=== PATIENT | male | born 1970 | race Caucasian/White ===

== ENCOUNTER 2018-04-15 20:12 | Inpatient (IN) ==
[2018-04-15] MEDS ORDERED: Isovue-370 500 ML INFUS..BTL IV ONE (20:20)
[2018-04-15] MEDS ORDERED: *HR* FentaNYL (PF) 100 MCG/2 ML VIAL IVP ONE (20:20)
[2018-04-15] MEDS ORDERED: Ondansetron 4 MG/2 ML VIAL IVP ONE (20:21)
--- NOTE | 2018-04-15 20:23 | Emergency Department Note ---
Disposition Clinical Impression: Acute appendicitis Qualifiers: Acute appendicitis type: with localized peritonitis Qualified Code(s): K35.3 - Acute appendicitis with localized peritonitis Disposition: Admitted As Inpatient Condition: Good Referrals: Julio César Mccarty MD [Primary Care Provider] - Forms: ED Satisfaction Letter, Work/School Release Time of Disposition: 22:36 Abdominal Pain HPI - General Chief Complaint: ED Abdominal Pain Stated Complaint: Abdominal Pain Time Seen by Provider: 04/15/18 20:19 Source: patient, EMS Mode of arrival: EMS - History of Present Illness HPI Narrative: This is a 47-year-old male who reports bilateral lower quadrant abdominal pain that began several hours prior to arrival. He also had a syncopal episode an unknown amount of time prior to arrival. He reports never having had similar abdominal pain before. He denies chest pain or shortness of breath. Pain Scale: 5 - Related Data Allergies Allergy/AdvReac Type Severity Reaction Status Date / Time No Known Allergies Allergy Verified 04/15/18 20:23 All systems ED: reviewed and negative except as stated. Cardiovascular: Reports: syncope Gastrointestinal: Reports: abdominal pain Abdominal Pain PMH - Past Medical History Medical history: Reports: diabetes, GERD, hypertension Male Surgical History: Reports: no surgical history Psychiatric history: Reports: no psych history - Social History Smoking status: Current every day smoker Alcohol use: Reports: none Drug use: Reports: none Physical Exam - General Limitations: no limitations General appearance: alert - Head Head exam: atraumatic, normocephalic, normal inspection - Eye Eye exam: Present: normal appearance, PERRL, EOMI - Chest Chest inspection: Present: normal inspection, symmetric chest wall rise - Respiratory Respiratory exam: Present: normal lung sounds bilaterally - Cardiovascular Cardiovascular exam: Present: regular rate, normal rhythm, normal heart sounds - Abdominal Exam Abdominal exam: Present: soft, tenderness. Absent: distention, guarding, rebound, rigidity Abdominal tenderness: Present: RLQ, LLQ - Extremities Exam Extremities exam: Present: normal inspection, full ROM. Absent: tenderness, pedal edema - Neurological Exam Neurological exam: Present: alert, oriented X3 - Psychiatric Psychiatric exam: Present: normal affect, normal mood - Skin Skin exam: Present: warm, dry, intact, normal color Course Vital Signs Temperature 98.3 F 04/15/18 20:17 Pulse Rate 87 04/15/18 20:17 Respiratory Rate 14 04/15/18 20:17 Blood Pressure 116/82 04/15/18 20:17 O2 Sat by Pulse Oximetry 99 04/15/18 20:17 Temperature 98.3 F 04/15/18 20:17 Pulse Rate 105 04/15/18 22:21 Respiratory Rate 20 04/15/18 22:21 Blood Pressure 128/85 04/15/18 22:21 O2 Sat by Pulse Oximetry 94 04/15/18 22:21 Oxygen Delivery Oxygen Delivery Room Air Abdominal Pain - MDM Narrative Medical decision making narrative: This is a 47-year-old male with acute appendicitis. I discussed this case with Dr. Sung, who accepted him for admission - Lab Data Lab results narrative: CBC shows leukocytosis of 14.2 BMP was unremarkable LFT was unremarkable Lactic acid was normal at 1.5 Troponin was low Result diagrams: 04/15/18 20:26 04/15/18 20:26 Lab Results 04/15/18 04/15/18 04/15/18 Range/Units 20:26 20:26 20:26 WBC 14.2 H (4.3-11.1) K/mcL RBC 5.61 H (4.19-5.50) M/mcL Hgb 16.8 (12.9-16.9) g/dL Hct 49.7 (37.5-50.1) % MCV 88.6 (83.0-100.0) fL MCH 29.9 (28.0-33.3) pg MCHC 33.8 (31.6-35.5) g/dL RDW 13.6 (11.5-14.5) % Plt Count 189 (140-400) K/mcL MPV 10.5 (9.4-12.4) fL Immature Gran % 0.8 (0-4) % Seg Neutrophils % 84.8 % Lymphocytes % 4.4 % Monocytes % 9.6 % Eosinophils % 0.1 % Basophils % 0.3 % Neutrophils # 12.1 H (1.6-8.9) K/mcL Lymphocytes # 0.6 (0.6-4.6) K/mcL Monocytes # 1.4 H (0.0-1.3) K/mcL Eosinophils # 0.0 (0.0-0.6) K/mcL Basophils # 0.0 (0.0-0.2) K/mcL Sodium 137 (136-145) mEq/L Potassium 4.6 (3.5-5.1) mEq/L Chloride 102 (98-107) mEq/L Carbon Dioxide 24 (23-29) mEq/L BUN 11 (6-20) mg/dL Creatinine 1.04 (0.70-1.30) mg/dL Est GFR ( Amer) > 60 (> 60) Est GFR (Non-Af Amer) > 60 (> 60) BUN/Creatinine Ratio 11 (6-26) Glucose 289 H (70-105) mg/dL Calculated Osmolality 294 (280-300) Lactic Acid 1.5 (0.5-2.2) mmol/L Calcium 9.3 (8.6-10.3) mg/dL Total Bilirubin 0.9 (0.3-1.0) mg/dL Direct Bilirubin 0.3 H (0.0-0.2) mg/dL Indirect Bilirubin 0.6 (0.0-1.2) mg/dL AST 12 L (13-39) Units/L ALT 23 (7-52) Units/L Alkaline Phosphatase 59 (34-104) Units/L Troponin I < 0.03 (< 0.04) ng/mL Serum Total Protein 7.2 (6.4-8.9) g/dL Albumin 4.2 (3.5-5.7) g/dL Globulin 3.0 (2.4-3.5) g/dL Albumin/Globulin Ratio 1.4 (1.1-2.2) Urine Color (Yellow) Urine Clarity (Clear) Urine pH (5.0-8.0) pH Units Ur Specific [place] (1.010-1.025) Urine Protein (Neg-Trace) mg/dL Urine Glucose (UA) (Normal) mg/dL Urine Ketones (Negative) mg/dL Urine Blood (Negative) Urine Nitrite (Negative) Urine Bilirubin (Negative) Urine Urobilinogen (Normal) mg/dL Ur Leukocyte Esterase (Negative) Urine Microscopic RBC (0-3) per hpf Urine Microscopic WBC (0-3) per hpf Ur Squamous Epith Cells (None-Few) per lpf Urine Bacteria (None-Few) per hpf Hyaline Casts (None-Few) per lpf Ur Culture Indicated? (NO) 04/15/18 Range/Units 21:38 WBC (4.3-11.1) K/mcL RBC (4.19-5.50) M/mcL Hgb (12.9-16.9) g/dL Hct (37.5-50.1) % MCV (83.0-100.0) fL MCH (28.0-33.3) pg MCHC (31.6-35.5) g/dL RDW (11.5-14.5) % Plt Count (140-400) K/mcL MPV (9.4-12.4) fL Immature Gran % (0-4) % Seg Neutrophils % % Lymphocytes % % Monocytes % % Eosinophils % % Basophils % % Neutrophils # (1.6-8.9) K/mcL Lymphocytes # (0.6-4.6) K/mcL Monocytes # (0.0-1.3) K/mcL Eosinophils # (0.0-0.6) K/mcL Basophils # (0.0-0.2) K/mcL Sodium (136-145) mEq/L Potassium (3.5-5.1) mEq/L Chloride (98-107) mEq/L Carbon Dioxide (23-29) mEq/L BUN (6-20) mg/dL Creatinine (0.70-1.30) mg/dL Est GFR ( Amer) (> 60) Est GFR (Non-Af Amer) (> 60) BUN/Creatinine Ratio (6-26) Glucose (70-105) mg/dL Calculated Osmolality (280-300) Lactic Acid (0.5-2.2) mmol/L Calcium (8.6-10.3) mg/dL Total Bilirubin (0.3-1.0) mg/dL Direct Bilirubin (0.0-0.2) mg/dL Indirect Bilirubin (0.0-1.2) mg/dL AST (13-39) Units/L ALT (7-52) Units/L Alkaline Phosphatase (34-104) Units/L Troponin I (< 0.04) ng/mL Serum Total Protein (6.4-8.9) g/dL Albumin (3.5-5.7) g/dL Globulin (2.4-3.5) g/dL Albumin/Globulin Ratio (1.1-2.2) Urine Color Yellow (Yellow) Urine Clarity Clear (Clear) Urine pH 5.5 (5.0-8.0) pH Units Ur Specific [place] > 1.030 H (1.010-1.025) Urine Protein 30 H (Neg-Trace) mg/dL Urine Glucose (UA) >=1000 H (Normal) mg/dL Urine Ketones 40 H (Negative) mg/dL Urine Blood Negative (Negative) Urine Nitrite Negative (Negative) Urine Bilirubin Negative (Negative) Urine Urobilinogen Normal (Normal) mg/dL Ur Leukocyte Esterase Negative (Negative) Urine Microscopic RBC 3-5 H (0-3) per hpf Urine Microscopic WBC 0-3 (0-3) per hpf Ur Squamous Epith Cells Moderate H (None-Few) per lpf Urine Bacteria None Seen (None-Few) per hpf Hyaline Casts Few (None-Few) per lpf Ur Culture Indicated? NO (NO) - Radiology Data Radiology results reviewed: Yes I reviewed the patient's radiology results. CT evidence/pelvis showed acute appendicitis - EKG Data EKG attestation: Yes I reviewed and interpreted this EKG. EKG results narrative: ECG showed a sinus rhythm at 89 bpm, normal intervals, normal axis, there is T- wave inversion in lead 3, and S wave in lead 1, and a Q-wave in lead 3, and T waves in V2 and V3 are slightly peaked, no other ST or T-wave abnormality
[2018-04-15 20:45] LABS: Basophils % 0.3 %; Eosinophils % 0.1 %; Hematocrit 49.7 % (37.5-50.1); Hemoglobin 16.8 g/dL (12.9-16.9); Immature Granulocytes % 0.8 % (0-4); Lymphocytes # 0.6 K/mcL (0.6-4.6); Lymphocytes % 4.4 %; Mean Corpuscular HGB Conc 33.8 g/dL (31.6-35.5); Mean Corpuscular Hemoglobin 29.9 pg (28.0-33.3); Mean Corpuscular Volume 88.6 fL (83.0-100.0); Mean Platelet Volume 10.5 fL (9.4-12.4); Monocytes # 1.4 K/mcL (0.0-1.3); Monocytes % 9.6 %; Neutrophils # 12.1 K/mcL (1.6-8.9); Platelet Count 189 K/mcL (140-400); Red Blood Count 5.61 M/mcL (4.19-5.50); Red Cell Distribution Width 13.6 % (11.5-14.5); Segmented Neutrophils % 84.8 %
[2018-04-15 21:00] LABS: Alanine Aminotransferase 23 Units/L (7-52); Albumin 4.2 g/dL (3.5-5.7); Albumin/Globulin Ratio 1.4 (1.1-2.2); Alkaline Phosphatase 59 Units/L (34-104); Aspartate Amino Transferase 12 Units/L (13-39); BUN/Creatinine Ratio 11 (6-26); Bilirubin,Direct 0.3 mg/dL (0.0-0.2); Bilirubin,Indirect 0.6 mg/dL (0.0-1.2); Bilirubin,Total 0.9 mg/dL (0.3-1.0); Blood Urea Nitrogen 11 mg/dL (6-20); Calcium 9.3 mg/dL (8.6-10.3); Carbon Dioxide 24 mEq/L (23-29); Chloride 102 mEq/L (98-107); Glucose 289 mg/dL (70-105); Osmolality,Calculated 294 (280-300); Potassium 4.6 mEq/L (3.5-5.1); Sodium 137 mEq/L (136-145); Total Protein 7.2 g/dL (6.4-8.9); Troponin I < 0.03 ng/mL (< 0.04); eGFR For Non-African Americans > 60 (> 60)
[2018-04-15 21:57] LABS: Bilirubin,Urine Negative (Negative); Blood,Urine Negative (Negative); Clarity,Urine Clear (Clear); Color,Urine Yellow (Yellow); Glucose,Urine (UA) >=1000 mg/dL (Normal); Ketones,Urine 40 mg/dL (Negative); Leukocyte Esterase,Urine Negative (Negative); Nitrite,Urine Negative (Negative); PH,Urine 5.5 pH Units (5.0-8.0); Protein,Urine 30 mg/dL (Neg-Trace); Specific Gravity,Urine > 1.030 (1.010-1.025); Urobilinogen,Urine Normal (Normal)
[2018-04-15 22:00] LABS: Bacteria,Urine None Seen per hpf (None-Few); Hyaline Casts,Urine Few per lpf (None-Few); Squamous Epithelial Cell,Urine Moderate per lpf (None-Few); WBC,Urine 0-3 per hpf (0-3)
[2018-04-15] MEDS ORDERED: Piperacillin/Tazobactam 3.375 GM in 0.9 % Sodium Chloride Mini Bag 100 ML IVPB ONE (22:05)
[2018-04-15] MEDS ORDERED: *HR* Morphine 2 MG/ML SYRINGE IVP PRN (22:44)
[2018-04-15] MEDS ORDERED: Mag Hydrox/Al Hydrox/Simeth 30 ML UDC PO ONE (23:40)
[2018-04-16] MEDS: cefOXitin 2,000 MG in Water for inj. (sterile) 20 ML 20 ML IVP SCH ×3 (01:21→17:55)
[2018-04-16] MEDS: 0.9 % Sodium Chloride 1,000 ML IVC SCH ×3 (01:22→19:35)
--- NOTE | 2018-04-16 08:45 | General Surg History&Physical ---
Date of Encounter: 04/16/18 Time of Encounter: 08:38 Assessment and Plan (1) Acute appendicitis Current Visit: Yes Status: Acute The assessment and plan as outlined above was discussed with the patient and/or family members who expressed understanding and agreement. All questions were answered. Imaging and assessment are consistent with acute appendicitis his CT notes dilated appendix at 18 mm, appendicolith is present, surrounding inflammatory changes noted, small amount of free fluid, and tiny focus of extra-luminal gas possibly representing perforation however noted CT is completed with IV only contrast (SEE REPORT BELOW). He is noted to have positive McBurney point, psoas , and Rovsing sign He is recommended to undergo a laparoscopic appendectomy vs interval appendectomy, (if perforation is likely-will review further with Dr. Sung). Recommendations, risks, and benefits, were reviewed with the patient and his mother who is his cardigan. They are all agreeable to proceed. We will plan for surgical intervention in the next 24 to 48 hours. A signed consent is placed on the hard chart. Plan: IVF, ATBX NPO CBC now and repeat in the am supportive care and discomfort management G.I. and DVT prophylaxis Further reviewed findings with Dr. Don (we appreciate your input and time) who notes microperfoation. Further recommendations per attending attestation CT/CT abd pelvis w iv no oral IMPRESSION: Acute appendicitis with tiny focus of adjacent extraluminal gas consistent with perforation. Surrounding inflammatory change and fluid is noted without a definable abscess. Qualifiers: Acute appendicitis type: with localized peritonitis Qualified Code(s): K35.3 - Acute appendicitis with localized peritonitis History of Present Illness Chief complaint: RLQ pain HPI: Mr. Marsh is a 47 year old male who presented on 04/15/2018 for a 24-hour history of right lower quadrant pain. Patient is somewhat of a poor historian given his history of developmental delay he is able to relate his PMH, but he is able to tell me that his abdominal pain started diffusely in the low abdomen and then localized to the right lower quadrant. He denies fevers. He does endorse a feeling of "blacking out," yesterday which she is not able to elaborate on. He reports the car ride and movement makes his pain worse. He is not able to lay on his back because of pain. He denies chest pain, shortness of breath, urinary signs or symptoms, constipation, diarrhea, or symptoms of a G.I. bleed. Past Med Surg Social Fam HX - Past Medical History Source: obtained from family Medical history: diabetes, GERD, hypertension, other (Developmental delay) Psychiatric history: no psych history - Past Surgical History Surgical History: no surgical history - Social History Smoking Status: Current every day smoker Smokeless Tobacco Status: No Alcohol use: none Drug use: none Occupational status: unemployed Current living situation: Home - Independent Activity Level: Independent ambulation Recent Out of Country Travel Within the Last 8 Weeks: No Exposure or Possible Exposure to Illness During Travel: No Medications and Allergies 3 Allergy/AdvReac Type Severity Reaction Status Date / Time No Known Allergies Allergy Verified 04/15/18 20:23 Review of Systems All systems PM: reviewed and no additional remarkable complaints except as stated All systems PM: The remainder of the systems were reviewed and are negative General Surgery Exam Initial Vital Signs Temp Pulse Resp BP Pulse Ox 98.3 F 87 14 116/82 99 04/15/18 20:17 04/15/18 20:17 04/15/18 20:17 04/15/18 20:17 04/15/18 20:17 Vital Signs Temp Pulse Resp BP Pulse Ox 04/16/18 05:53 98.2 F 104 16 123/84 91 04/16/18 01:53 90 04/16/18 01:05 99.2 F 101 17 130/81 90 04/15/18 23:36 16 118/86 04/15/18 22:21 105 20 128/85 94 04/15/18 20:17 98.3 F 87 14 116/82 99 Intake and Output 04/15/18 04/16/18 04/16/18 23:59 07:59 15:59 Intake Total 100 / 100 20 / 20 Output Total 525 / 525 Balance 100 / 100 -505 / -505 Intake: IV Fluids 100 / 100 20 / 20 Mefoxin 2,000 MG In Water for 20 20 inj. (sterile) 20 ML @ 600 mls/ hr IVP Q8HR [facility] Rx#:[id number] Zosyn 3.375 GM In 0.9 % Sodium 100 / 100 Chloride (Mini-Bag +) 100 ML @ 25 mls/hr IVPB ONCE ONE Rx#: [id number] Oral 0 / 0 Output: Urine 525 / 525 Other: Weight 99.79 kg 94.2 kg Blood Glucose* 256 Patient Weight 04/16/18 23:59 Weight 94.2 kg VITAL SIGNS: Reviewed. See [facility] GENERAL: In no apparent distress. HEENT: Normocephalic, atraumatic, pupils are equal and reactive, extraocular motions intact, oropharynx is pink and moist, edentulous, no JVD noted. CHEST/RESPIRATORY: The thorax is free from signs of trauma. Lung sounds: clear to auscultation, normal respiratory effort CARDIAC: Regular rate and rhythm. Normal S1 and S2, without murmurs, gallops, or rubs. VASCULAR: No Edema. 2+ peripheral pulses. ABDOMEN: protuberant, soft, hypoactive bowel sounds, positive McBurney point, positive psoas, positive Rovsing sign MUSCULOSKELETAL: Good range of motion of all major joints. Extremities without clubbing, cyanosis or edema. NEUROLOGIC EXAM: A7O x3, Speech normal. Follows commands. PSYCHIATRIC: Mood normal. Developmental delay noted SKIN: No rash or lesions. Results - Labs 04/16/18 08:58 04/16/18 08:58 Abnormal lab results WBC 14.2 K/mcL (4.3-11.1) H 04/15/18 20:26 RBC 5.61 M/mcL (4.19-5.50) H 04/15/18 20:26 Neutrophils # 12.1 K/mcL (1.6-8.9) H 04/15/18 20:26 Monocytes # 1.4 K/mcL (0.0-1.3) H 04/15/18 20:26 Glucose 289 mg/dL (70-105) H 04/15/18 20:26 Direct Bilirubin 0.3 mg/dL (0.0-0.2) H 04/15/18 20:26 AST 12 Units/L (13-39) L 04/15/18 20:26 Ur Specific [place] > 1.030 (1.010-1.025) H 04/15/18 21:38 Urine Protein 30 mg/dL (Neg-Trace) H 04/15/18 21:38 Urine Glucose (UA) >=1000 mg/dL (Normal) H 04/15/18 21:38 Urine Ketones 40 mg/dL (Negative) H 04/15/18 21:38 Urine Microscopic RBC 3-5 per hpf (0-3) H 04/15/18 21:38 Ur Squamous Epith Cells Moderate per lpf (None-Few) H 04/15/18 21:38 All other labs normal.
[2018-04-16] MEDS ORDERED: *HR* Metoprolol 5 MG/5 ML VIAL IVP SCH (08:47)
[2018-04-16 09:09] LABS: Basophils % 0.2 %; Hematocrit 48.1 % (37.5-50.1); Hemoglobin 16.5 g/dL (12.9-16.9); Immature Granulocytes % 0.3 % (0-4); Lymphocytes # 0.4 K/mcL (0.6-4.6); Lymphocytes % 2.8 %; Mean Corpuscular HGB Conc 34.3 g/dL (31.6-35.5); Mean Corpuscular Hemoglobin 30.6 pg (28.0-33.3); Mean Corpuscular Volume 89.1 fL (83.0-100.0); Mean Platelet Volume 10.4 fL (9.4-12.4); Monocytes # 1.1 K/mcL (0.0-1.3); Monocytes % 7.5 %; Neutrophils # 12.6 K/mcL (1.6-8.9); Platelet Count 177 K/mcL (140-400); Red Cell Distribution Width 13.8 % (11.5-14.5); Segmented Neutrophils % 89.2 %
[2018-04-16 09:35] LABS: BUN/Creatinine Ratio 13 (6-26); Blood Urea Nitrogen 15 mg/dL (6-20); Calcium 8.8 mg/dL (8.6-10.3); Carbon Dioxide 24 mEq/L (23-29); Chloride 100 mEq/L (98-107); Glucose 285 mg/dL (70-105); Osmolality,Calculated 289 (280-300); Potassium 4.2 mEq/L (3.5-5.1); Sodium 134 mEq/L (136-145); eGFR For Non-African Americans > 60 (> 60)
[2018-04-16 09:42] LABS: Platelet Estimate Normal (Normal)
[2018-04-16] MEDS: Pantoprazole 40 MG VIAL IVP SCH (10:15)
[2018-04-16] MEDS: Ipratropium/Albuterol Neb 3 ML IH SCH ×4 (11:29→23:16)
[2018-04-16] MEDS: *HR* Metoprolol 5 MG/5 ML VIAL IVP SCH ×2 (12:15→17:57)
[2018-04-16] MEDS ORDERED: D5% in Water 1,000 ML IVC PRN (14:47)
[2018-04-16] MEDS ORDERED: *HR* Dextrose 50 % in Water (Syg) 50 ML SYRINGE IVP PRN (14:47)
[2018-04-16] MEDS ORDERED: Dextrose Gel 15 GM/37.5 ML TUBE PO PRN ×2 (14:47)
[2018-04-16] MEDS ORDERED: 0.9 % Sodium Chloride 1,000 ML IVC ONE (16:47)
[2018-04-16] MEDS ORDERED: 0.9 % Sodium Chloride 1,000 ML ONE (17:09)
[2018-04-16] MEDS: Insulin LISPRO 300 UNITS/3 ML VIAL SQ SCH (17:57)
[2018-04-16] MEDS: Acetaminophen IV 1,000 MG/100 ML INFUS..BTL IVPB SCH (17:58)
[2018-04-17] MEDS: cefOXitin 2,000 MG in Water for inj. (sterile) 20 ML 20 ML IVP SCH ×3 (00:48→16:35)
[2018-04-17] MEDS: *HR* Metoprolol 5 MG/5 ML VIAL IVP SCH ×4 (00:49→18:02)
[2018-04-17] MEDS: Acetaminophen IV 1,000 MG/100 ML INFUS..BTL IVPB SCH ×3 (00:50→12:16)
[2018-04-17] MEDS: Insulin LISPRO 300 UNITS/3 ML VIAL SQ SCH ×4 (00:50→18:03)
[2018-04-17] MEDS: Ipratropium/Albuterol Neb 3 ML IH SCH ×6 (03:33→23:19)
[2018-04-17 06:00] LABS: Basophils % 0.2 %; Eosinophils % 0.1 %; Hematocrit 42.2 % (37.5-50.1); Immature Granulocytes % 0.8 % (0-4); Lymphocytes # 0.5 K/mcL (0.6-4.6); Lymphocytes % 4.7 %; Mean Corpuscular HGB Conc 34.1 g/dL (31.6-35.5); Mean Corpuscular Hemoglobin 30.4 pg (28.0-33.3); Mean Corpuscular Volume 89.2 fL (83.0-100.0); Mean Platelet Volume 10.7 fL (9.4-12.4); Monocytes # 0.7 K/mcL (0.0-1.3); Monocytes % 5.9 %; Neutrophils # 9.8 K/mcL (1.6-8.9); Platelet Count 149 K/mcL (140-400); Red Blood Count 4.73 M/mcL (4.19-5.50); Red Cell Distribution Width 13.8 % (11.5-14.5); Segmented Neutrophils % 88.3 %
[2018-04-17 06:13] LABS: Hemoglobin 14.4 g/dL (12.9-16.9)
[2018-04-17 06:19] LABS: BUN/Creatinine Ratio 17 (6-26); Blood Urea Nitrogen 17 mg/dL (6-20); Calcium 8.3 mg/dL (8.6-10.3); Carbon Dioxide 26 mEq/L (23-29); Chloride 103 mEq/L (98-107); Glucose 206 mg/dL (70-105); Osmolality,Calculated 288 (280-300); Potassium 4.2 mEq/L (3.5-5.1); Sodium 135 mEq/L (136-145); eGFR For Non-African Americans > 60 (> 60)
[2018-04-17] MEDS: Pantoprazole 40 MG VIAL IVP SCH (09:13)
--- NOTE | 2018-04-17 09:33 | General Surgery Progress Note ---
Date of Encounter: 04/17/18 Time of Encounter: 09:28 - Assessment and Plan (1) Acute appendicitis Current Visit: Yes Status: Acute Microperforation appendicitis. WBC has normalized, he is afebrile. Exam improves ,involuntary guarding remains. We will continue to closely monitor. Plan: -continue supportive care and discomfort management -may have limited clear liquid diet given improvement. No carbonation no sugar -resume home medications -ambulate in the halls TID -out of bed to chair TID -continue IV antibiotics -serial abdominal exams -repeat a.m. labs Qualifiers: Acute appendicitis type: with localized peritonitis Qualified Code(s): K35.3 - Acute appendicitis with localized peritonitis (2) T2DM (type 2 diabetes mellitus) Current Visit: Yes Status: Acute Accu chekc Q6H while limited clears SSI Qualifiers: Diabetes mellitus terminal supervisor insulin use: unspecified usp insulin use status Diabetes mellitus complication status: with unspecified complications Qualified Code(s): E11.8 - Type 2 diabetes mellitus with unspecified complications (3) HTN, goal below 130/80 Current Visit: Yes Status: Acute Continue home lisinopril scheduled metoprolol PRN hydralazine Subjective Patient reports: no new complaints, feels better, still having pain, pain is less, voiding w/o difficulty, flatus, no bowel movement, afebrile Narrative: Kurt states he is able to move artter with less pain. He states he is very hungry. Hi sister is at bedside and notes he seems to be moving easier. Objective Vital Signs - Last 8 Hours Temp Pulse Resp BP Pulse Ox 04/17/18 07:36 16 94 04/17/18 07:14 98.2 F 94 16 146/80 92 04/17/18 04:23 98.1 F 100 16 128/86 93 Intake and Output 04/16/18 04/17/18 04/17/18 23:59 07:59 15:59 Intake Total 358 / 358 200 / 200 0 / 0 Output Total 350 / 350 800 / 800 Balance -600 / -600 0 / 0 Intake: IV Fluids 358 / 358 200 / 200 0.9 % Sodium Chloride 1,000 ML 238 / 238 @ 75 mls/hr IVC .[id number] [facility] Rx #:[id number] Mefoxin 2,000 MG In Water for 20 / 20 inj. (sterile) 20 ML @ 600 mls/ hr IVP Q8HR [facility] Rx#:[id number] Ofirmev 1,000 mg/100 ml 1,000 100 / 100 200 / 200 mg In 100 ml @ 400 mls/hr IVPB Q6HR [facility] Rx#:[id number] Oral 0 / 0 0 / 0 0 / 0 Output: Urine 350 / 350 800 / 800 Other: Meal NPO NPO Breakfast Percent of Meal Consumed 0% # Bowel Movements 0 Blood Glucose* 256 176 VITAL SIGNS: Reviewed. See [facility] GENERAL: In no apparent distress. HEENT: Normocephalic, atraumatic, oropharynx is pink and moist, there is no neck adenopathy or JVD noted. CHEST/RESPIRATORY: The thorax is free from signs of trauma. Lung sounds: clear to auscultation, normal respiratory effort CARDIAC: Regular rate and rhythm. Normal S1 and S2, without murmurs, gallops, or rubs. VASCULAR: No Edema. 2+ peripheral pulses. ABDOMEN: Protuberant, some minor involuntary guarding remains, tender to moderate palpation right and left lower quadrant. INCISION: Surgical incision is clean, dry, and intact. There are no signs of cellulitis or infection noted. MUSCULOSKELETAL: Good range of motion of all major joints. Extremities without clubbing, cyanosis or edema. NEUROLOGIC EXAM: Alert and oriented x 3. Speech normal. Follows commands. PSYCHIATRIC: Mood normal. SKIN: No rash or lesions. - Labs 04/17/18 05:34 04/17/18 05:34 Diabetes panel 04/17/18 Range/Units 05:34 Sodium 135 L (136-145) mEq/L Potassium 4.2 (3.5-5.1) mEq/L Chloride 103 (98-107) mEq/L Carbon Dioxide 26 (23-29) mEq/L BUN 17 (6-20) mg/dL Creatinine 1.02 (0.70-1.30) mg/dL Glucose 206 H (70-105) mg/dL Calcium 8.3 L (8.6-10.3) mg/dL Calcium panel 04/17/18 Range/Units 05:34 Calcium 8.3 L (8.6-10.3) mg/dL Pituitary panel 04/17/18 Range/Units 05:34 Sodium 135 L (136-145) mEq/L Potassium 4.2 (3.5-5.1) mEq/L Chloride 103 (98-107) mEq/L Carbon Dioxide 26 (23-29) mEq/L BUN 17 (6-20) mg/dL Creatinine 1.02 (0.70-1.30) mg/dL Glucose 206 H (70-105) mg/dL Calcium 8.3 L (8.6-10.3) mg/dL Adrenal panel 04/17/18 Range/Units 05:34 Sodium 135 L (136-145) mEq/L Potassium 4.2 (3.5-5.1) mEq/L Chloride 103 (98-107) mEq/L Carbon Dioxide 26 (23-29) mEq/L BUN 17 (6-20) mg/dL Creatinine 1.02 (0.70-1.30) mg/dL Glucose 206 H (70-105) mg/dL Calcium 8.3 L (8.6-10.3) mg/dL Consult Discharge Plan - Plan Referrals: Julio César Mccarty MD [Primary Care Provider] -
[2018-04-17] MEDS: 0.9 % Sodium Chloride 1,000 ML IVC SCH (09:45)
[2018-04-18] MEDS: Ipratropium/Albuterol Neb 3 ML IH SCH ×6 (03:38→23:13)
[2018-04-18] MEDS: Insulin LISPRO 300 UNITS/3 ML VIAL SQ SCH ×4 (03:51→17:21)
[2018-04-18] MEDS: cefOXitin 2,000 MG in Water for inj. (sterile) 20 ML 20 ML IVP SCH ×3 (03:55→17:20)
[2018-04-18] MEDS: *HR* Metoprolol 5 MG/5 ML VIAL IVP SCH ×4 (03:55→17:20)
[2018-04-18] MEDS: 0.9 % Sodium Chloride 1,000 ML IVC SCH ×2 (04:04→12:16)
[2018-04-18 08:15] LABS: Basophils % 0.3 %; Eosinophils % 0.4 %; Hematocrit 41.1 % (37.5-50.1); Hemoglobin 13.9 g/dL (12.9-16.9); Immature Granulocytes % 1.6 % (0-4); Lymphocytes # 0.4 K/mcL (0.6-4.6); Lymphocytes % 3.6 %; Mean Corpuscular HGB Conc 33.8 g/dL (31.6-35.5); Mean Corpuscular Hemoglobin 29.5 pg (28.0-33.3); Mean Corpuscular Volume 87.3 fL (83.0-100.0); Mean Platelet Volume 10.4 fL (9.4-12.4); Monocytes # 0.7 K/mcL (0.0-1.3); Monocytes % 6.1 %; Neutrophils # 9.5 K/mcL (1.6-8.9); Platelet Count 180 K/mcL (140-400); Red Blood Count 4.71 M/mcL (4.19-5.50); Red Cell Distribution Width 13.9 % (11.5-14.5)
[2018-04-18 08:29] LABS: BUN/Creatinine Ratio 17 (6-26); Blood Urea Nitrogen 14 mg/dL (6-20); Calcium 8.5 mg/dL (8.6-10.3); Carbon Dioxide 23 mEq/L (23-29); Chloride 101 mEq/L (98-107); Glucose 198 mg/dL (70-105); Osmolality,Calculated 284 (280-300); Potassium 4.2 mEq/L (3.5-5.1); Sodium 134 mEq/L (136-145); eGFR For Non-African Americans > 60 (> 60)
[2018-04-18] MEDS: Pantoprazole 40 MG VIAL IVP SCH (10:17)
[2018-04-18] MEDS: Lisinopril 20 MG TABLET PO SCH (10:18)
[2018-04-18] MEDS: Ondansetron 4 MG/2 ML VIAL IVP PRN (12:26)
--- NOTE | 2018-04-18 12:36 | General Surgery Progress Note ---
<Walter Gatica R - Last Filed: 04/18/18 12:51> Date of Encounter: 04/18/18 Time of Encounter: 12:00 - Assessment and Plan (1) Acute appendicitis Current Visit: Yes Status: Acute Appendicitis with microperforation admitted on 04/16/18. Patient remains afebrile, leukocytosis has normalized. Pain remains improved, will continue to monitor. He does have increased abdominal distention on exam today with some associated nausea and vomiting. Plan: -NPO at this time -Obtain AAS and evaluate need for NG tube -Continue IV antibiotics with cefoxitin -Continue supportive care and pain management -Zofran as needed for nausea/vomiting -IV fluids -Ambulation in the halls 3 times a day with assistance -Out of bed to chair at least 3 times a day -Serial abdominal exams -Repeat a.m. labs Qualifiers: Acute appendicitis type: with localized peritonitis Qualified Code(s): K35.3 - Acute appendicitis with localized peritonitis (2) T2DM (type 2 diabetes mellitus) Current Visit: Yes Status: Acute SSI Q6H Accu checks Qualifiers: Diabetes mellitus skilled nursing insulin use: unspecified skilled nursing insulin use status Diabetes mellitus complication status: with unspecified complications Qualified Code(s): E11.8 - Type 2 diabetes mellitus with unspecified complications (3) HTN, goal below 130/80 Current Visit: Yes Status: Acute Blood pressure remained stable, continue home medications. Hydralazine available PRN. Subjective Patient reports: pain is less, voiding w/o difficulty, no bowel movement, vomiting Narrative: Patient was seen and evaluated today with family present at the bedside. 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 Patient reports increasing abdominal distention. Has been on clear liquid diet since yesterday, however family states the patient 's intake has been limited to only a small amount of what he is given. Patient is complaining of nausea and vomiting today, has vomited small-volume green vomitus multiple times as morning. Patient does report that abdominal pain has been stable, is aggravated with moving and pressure. Patient denies any bowel movement in the last 2 days. Passing flatus yesterday, but none has been noted by family today. Objective Vital Signs - Last 8 Hours Temp Pulse Resp BP Pulse Ox 04/18/18 10:14 97.5 F L 96 16 131/90 92 04/18/18 06:39 97.6 F 93 16 133/90 95 Intake and Output 04/17/18 04/18/18 04/18/18 23:59 07:59 15:59 Intake Total 1020 / 1020 20 / 20 140 / 140 Output Total 500 / 500 350 / 350 Balance 520 / 520 -330 / -330 140 / 140 Intake: IV Fluids 1020 / 1020 20 / 20 20 / 20 0.9 % Sodium Chloride 1,000 ML 1000 / 1000 @ 75 mls/hr IVC .[id number] [facility] Rx #:[id number] Mefoxin 2,000 MG In Water for 20 20 20 / 20 20 / 20 inj. (sterile) 20 ML @ 600 mls/ hr IVP Q8HR [facility] Rx#:[id number] Oral 0 / 0 0 / 0 120 / 120 Output: Urine 500 / 500 350 / 350 Other: Meal clears Percent of Meal Consumed 0% # Bowel Movements 0 Weight 93.7 kg Blood Glucose* 171 184 203 Patient Weight 04/18/18 23:59 Weight 93.7 kg - General physical appearance no distress, other (Mild pain) - Eyes PERRL, normal ocular movement - ENT atraumatic, normocephalic - Neck Neck exam: trachea midline - Respiratory normal respiratory effort, clear to auscultation - Cardiovascular Cardiovascular exam: Present: RRR - Abdomen Abdomen: Present: distended, tender, guarding (mild involuntary gaurding of RLQ) . Absent: bowel sounds present Abdominal Tenderness: RLQ - Integumentary no rash - Neurologic CN 2-12 grossly intact - Psychiatric oriented to time, oriented to person, oriented to place, speech is normal - Labs 04/18/18 07:33 04/18/18 07:33 Diabetes panel 04/18/18 Range/Units 07:33 Sodium 134 L (136-145) mEq/L Potassium 4.2 (3.5-5.1) mEq/L Chloride 101 (98-107) mEq/L Carbon Dioxide 23 (23-29) mEq/L BUN 14 (6-20) mg/dL Creatinine 0.84 (0.70-1.30) mg/dL Glucose 198 H (70-105) mg/dL Calcium 8.5 L (8.6-10.3) mg/dL Calcium panel 04/18/18 Range/Units 07:33 Calcium 8.5 L (8.6-10.3) mg/dL Pituitary panel 04/18/18 Range/Units 07:33 Sodium 134 L (136-145) mEq/L Potassium 4.2 (3.5-5.1) mEq/L Chloride 101 (98-107) mEq/L Carbon Dioxide 23 (23-29) mEq/L BUN 14 (6-20) mg/dL Creatinine 0.84 (0.70-1.30) mg/dL Glucose 198 H (70-105) mg/dL Calcium 8.5 L (8.6-10.3) mg/dL Adrenal panel 04/18/18 Range/Units 07:33 Sodium 134 L (136-145) mEq/L Potassium 4.2 (3.5-5.1) mEq/L Chloride 101 (98-107) mEq/L Carbon Dioxide 23 (23-29) mEq/L BUN 14 (6-20) mg/dL Creatinine 0.84 (0.70-1.30) mg/dL Glucose 198 H (70-105) mg/dL Calcium 8.5 L (8.6-10.3) mg/dL Consult Discharge Plan - Plan Referrals: Julio César Mccarty MD [Primary Care Provider] - <Pradip Sung E - Last Filed: 04/18/18 13:38> Date of Encounter: 04/18/18 - Assessment and Plan (1) Acute appendicitis Current Visit: Yes Status: Acute Plan for NG tube placement secondary to the ileus. Pt will remain NPO. Qualifiers: Acute appendicitis type: with localized peritonitis Qualified Code(s): K35.3 - Acute appendicitis with localized peritonitis Objective Vital Signs - Last 8 Hours Temp Pulse Resp BP Pulse Ox 04/18/18 10:14 97.5 F L 96 16 131/90 92 04/18/18 06:39 97.6 F 93 16 133/90 95 Intake and Output 04/17/18 04/18/18 04/18/18 23:59 07:59 15:59 Intake Total 1020 / 1020 1140 / 1140 Output Total 500 / 500 350 / 350 Balance 520 / 520 -330 / -330 1140 / 1140 Intake: IV Fluids 1020 / 1020 1020 / 1020 0.9 % Sodium Chloride 1,000 ML 1000 / 1000 1000 / 1000 @ 75 mls/hr IVC .[id number] [facility] Rx #:[id number] Mefoxin 2,000 MG In Water for 20 20 20 / 20 20 / 20 inj. (sterile) 20 ML @ 600 mls/ hr IVP Q8HR [facility] Rx#:[id number] Oral 0 / 0 0 / 0 120 / 120 Output: Urine 500 / 500 350 / 350 Other: Meal clears Percent of Meal Consumed 0% # Bowel Movements 0 Weight 93.7 kg Blood Glucose* 171 184 203 Patient Weight 04/18/18 23:59 Weight 93.7 kg - Labs 04/18/18 07:33 04/18/18 07:33 Diabetes panel 04/18/18 Range/Units 07:33 Sodium 134 L (136-145) mEq/L Potassium 4.2 (3.5-5.1) mEq/L Chloride 101 (98-107) mEq/L Carbon Dioxide 23 (23-29) mEq/L BUN 14 (6-20) mg/dL Creatinine 0.84 (0.70-1.30) mg/dL Glucose 198 H (70-105) mg/dL Calcium 8.5 L (8.6-10.3) mg/dL Calcium panel 04/18/18 Range/Units 07:33 Calcium 8.5 L (8.6-10.3) mg/dL Pituitary panel 04/18/18 Range/Units 07:33 Sodium 134 L (136-145) mEq/L Potassium 4.2 (3.5-5.1) mEq/L Chloride 101 (98-107) mEq/L Carbon Dioxide 23 (23-29) mEq/L BUN 14 (6-20) mg/dL Creatinine 0.84 (0.70-1.30) mg/dL Glucose 198 H (70-105) mg/dL Calcium 8.5 L (8.6-10.3) mg/dL Adrenal panel 04/18/18 Range/Units 07:33 Sodium 134 L (136-145) mEq/L Potassium 4.2 (3.5-5.1) mEq/L Chloride 101 (98-107) mEq/L Carbon Dioxide 23 (23-29) mEq/L BUN 14 (6-20) mg/dL Creatinine 0.84 (0.70-1.30) mg/dL Glucose 198 H (70-105) mg/dL Calcium 8.5 L (8.6-10.3) mg/dL
[2018-04-19] MEDS: cefOXitin 2,000 MG in Water for inj. (sterile) 20 ML 20 ML IVP SCH ×2 (01:50→09:22)
[2018-04-19] MEDS: Insulin LISPRO 300 UNITS/3 ML VIAL SQ SCH ×5 (01:51→21:07)
[2018-04-19] MEDS: *HR* Metoprolol 5 MG/5 ML VIAL IVP SCH ×4 (01:51→18:30)
[2018-04-19] MEDS: 0.9 % Sodium Chloride 1,000 ML IVC SCH ×3 (02:54→22:58)
[2018-04-19] MEDS: Ipratropium/Albuterol Neb 3 ML IH SCH ×6 (04:58→23:02)
[2018-04-19 06:15] LABS: Basophils % 0.4 %; Eosinophils # 0.1 K/mcL (0.0-0.6); Eosinophils % 1.3 %; Hemoglobin 13.8 g/dL (12.9-16.9); Immature Granulocytes % 1.3 % (0-4); Lymphocytes # 0.3 K/mcL (0.6-4.6); Lymphocytes % 4.6 %; Mean Corpuscular HGB Conc 32.9 g/dL (31.6-35.5); Mean Corpuscular Hemoglobin 29.1 pg (28.0-33.3); Mean Corpuscular Volume 88.6 fL (83.0-100.0); Mean Platelet Volume 10.2 fL (9.4-12.4); Monocytes # 0.8 K/mcL (0.0-1.3); Monocytes % 10.1 %; Neutrophils # 6.1 K/mcL (1.6-8.9); Platelet Count 213 K/mcL (140-400); Red Blood Count 4.74 M/mcL (4.19-5.50); Red Cell Distribution Width 13.8 % (11.5-14.5); Segmented Neutrophils % 82.3 %
[2018-04-19 06:33] LABS: BUN/Creatinine Ratio 21 (6-26); Blood Urea Nitrogen 17 mg/dL (6-20); Calcium 8.2 mg/dL (8.6-10.3); Carbon Dioxide 23 mEq/L (23-29); Chloride 105 mEq/L (98-107); Glucose 184 mg/dL (70-105); Osmolality,Calculated 288 (280-300); Potassium 4.3 mEq/L (3.5-5.1); Sodium 136 mEq/L (136-145); eGFR For Non-African Americans > 60 (> 60)
--- NOTE | 2018-04-19 07:50 | General Surgery Progress Note ---
Date of Encounter: 04/19/18 Time of Encounter: 07:48 - Assessment and Plan (1) Acute appendicitis Current Visit: Yes Status: Acute Microperforation appendicitis. WBC has normalized, he is afebrile. Noted n/v on 04/18 for which an AAS was obtained. Ileus, NG placed. No improvement in distention per patient. He reports feel weak. abd exam with tympani, increased abdominal distention, and involuntary guarding noted. 800 mL gastric output in the last 24 hours noted. Plan: -continue supportive care and discomfort management -continue NG to low intermittent wall suction -KUB to assess bowel gas pattern, further recommendations pending -NPO -ambulate in the halls TID -out of bed to chair TID -continue IV antibiotics -serial abdominal exams -Consideration for PICC/TPN pending KUB and clinical course; will order labs in preparation -repeat a.m. labs UPDATE 1014: KUB repeated and notes appropriate positioning. Low grade temp and EKG with NSR. Ordered Oformev. Consideration given to repeat CT vs SBFt. Will review with Dr. Sung. PICC and TPN given clinical course. Albumin, prealbumin completed. Moderate protein malnutrition noted. Of note, sister is at bedside and advocates for patient re: questions the time frame of "waiting it out vs doing something about it." I supported her advocacy and reviewed at the length the supportive care role in SBO vs ileus and perforated appendicitis. She stated understanding and willingness to continue treatment plan. Qualifiers: Acute appendicitis type: with localized peritonitis Qualified Code(s): K35.3 - Acute appendicitis with localized peritonitis (2) Adynamic ileus Current Visit: Yes Status: Acute NG, LIWS, See appendicitis a/p for further recommendations (3) Tachycardia Current Visit: Yes Status: Acute Periods of tachycardia and consistent heart rates in the 90s despite Q6 hours administration's of beta blockers. We will obtain repeat EKG and rectal temp to r/o organic nature. (4) T2DM (type 2 diabetes mellitus) Current Visit: Yes Status: Acute Last Hgb A1C 01/2018 8.9% Accu [facility] Q6H SSI Qualifiers: Diabetes mellitus senior care insulin use: unspecified senior care insulin use status Diabetes mellitus complication status: with unspecified complications Qualified Code(s): E11.8 - Type 2 diabetes mellitus with unspecified complications (5) HTN, goal below 130/80 Current Visit: Yes Status: Acute Stop home lisinopril wile NPO/NG scheduled metoprolol PRN hydralazine Subjective Patient reports: still having pain, voiding w/o difficulty, no flatus, no bowel movement, nausea, afebrile Narrative: States he feels "full and weak." Denies further vomiting since yesterday. No BM. States pain remains with any movement throughout the abdomen, but worse in the RLQ. Objective Vital Signs - Last 8 Hours Temp Pulse Resp BP Pulse Ox 04/19/18 06:37 97.4 F L 90 18 124/78 95 04/19/18 04:58 16 90 04/19/18 04:41 97.5 F L 98 16 132/87 90 Intake and Output 04/18/18 04/18/18 04/19/18 15:59 23:59 07:59 Intake Total 1620 / 1620 20 / 20 1020 / 1020 Output Total 800 / 800 575 / 575 300 / 300 Balance 820 / 820 -555 / -555 720 / 720 Intake: IV Fluids 1020 / 1020 20 / 20 1020 / 1020 0.9 % Sodium Chloride 1,000 ML 1000 / 1000 1000 / 1000 @ 75 mls/hr IVC .[id number] [facility] Rx #:[id number] Mefoxin 2,000 MG In Water for 20 / 20 20 / 20 20 / 20 inj. (sterile) 20 ML @ 600 mls/ hr IVP Q8HR [facility] Rx#:[id number] Oral 600 / 600 0 / 0 0 / 0 Output: Urine 0 / 0 575 / 575 300 / 300 Gastric Drainage 800 / 800 Other: Meal NPO # Bowel Movements 0 Weight 97.2 kg Blood Glucose* 203 200 155 Patient Weight 04/19/18 23:59 Weight 97.2 kg - General physical appearance no distress, moderate pain - Eyes normal ocular movement, icteric - ENT normal nares (NG noted), normal mucosa - Neck Neck exam: trachea midline - Respiratory other (Decreased breath sounds) - Cardiovascular Cardiovascular exam: Present: RRR - Abdomen Abdomen: Present: soft, tympanic, distended, tender, guarding. Absent: bowel sounds present Hernia: none - Integumentary no rash - Neurologic normal coordination, normal sensation - Musculoskeletal normal posture - Psychiatric oriented to time, oriented to person, oriented to place - Labs 04/19/18 05:45 04/19/18 05:45 Diabetes panel 04/18/18 04/19/18 Range/Units 07:33 05:45 Sodium 134 L 136 (136-145) mEq/L Potassium 4.2 4.3 (3.5-5.1) mEq/L Chloride 101 105 (98-107) mEq/L Carbon Dioxide 23 23 (23-29) mEq/L BUN 14 17 (6-20) mg/dL Creatinine 0.84 0.81 (0.70-1.30) mg/dL Glucose 198 H 184 H (70-105) mg/dL Calcium 8.5 L 8.2 L (8.6-10.3) mg/dL Calcium panel 04/18/18 04/19/18 Range/Units 07:33 05:45 Calcium 8.5 L 8.2 L (8.6-10.3) mg/dL Pituitary panel 04/18/18 04/19/18 Range/Units 07:33 05:45 Sodium 134 L 136 (136-145) mEq/L Potassium 4.2 4.3 (3.5-5.1) mEq/L Chloride 101 105 (98-107) mEq/L Carbon Dioxide 23 23 (23-29) mEq/L BUN 14 17 (6-20) mg/dL Creatinine 0.84 0.81 (0.70-1.30) mg/dL Glucose 198 H 184 H (70-105) mg/dL Calcium 8.5 L 8.2 L (8.6-10.3) mg/dL Adrenal panel 04/18/18 04/19/18 Range/Units 07:33 05:45 Sodium 134 L 136 (136-145) mEq/L Potassium 4.2 4.3 (3.5-5.1) mEq/L Chloride 101 105 (98-107) mEq/L Carbon Dioxide 23 23 (23-29) mEq/L BUN 14 17 (6-20) mg/dL Creatinine 0.84 0.81 (0.70-1.30) mg/dL Glucose 198 H 184 H (70-105) mg/dL Calcium 8.5 L 8.2 L (8.6-10.3) mg/dL Consult Discharge Plan - Plan Referrals: Julio César Mccarty MD [Primary Care Provider] -
[2018-04-19 08:52] LABS: Alanine Aminotransferase 8 Units/L (7-52); Albumin/Globulin Ratio 0.9 (1.1-2.2); Alkaline Phosphatase 53 Units/L (34-104); Aspartate Amino Transferase 12 Units/L (13-39); Bilirubin,Direct 0.2 mg/dL (0.0-0.2); Bilirubin,Indirect 0.3 mg/dL (0.0-1.2); Bilirubin,Total 0.5 mg/dL (0.3-1.0); Globulin 3.2 g/dL (2.4-3.5); Magnesium 2.1 mg/dL (1.6-2.6); Phosphorous 1.5 mg/dL (2.7-4.5); Total Protein 6.2 g/dL (6.4-8.9)
[2018-04-19] MEDS: Pantoprazole 40 MG VIAL IVP SCH (09:22)
[2018-04-19] MEDS ORDERED: Lidocaine -MPF 1% 5 ML AMPUL INFILT ONE ×2 (10:11→12:45)
[2018-04-19] MEDS: Acetylcysteine 10% 2 ML INHSOL IH SCH ×4 (10:52→23:03)
[2018-04-19] MEDS: Levofloxacin 750 MG/150 ML 750 MG/150 ML BAG IVPB SCH (12:51)
[2018-04-19] MEDS: Acetaminophen IV 1,000 MG/100 ML INFUS..BTL IVPB SCH ×2 (13:21→18:30)
[2018-04-19] MEDS: MetroNIDAZOLE 500 MG/100 ML 500 MG/100 ML BAG IVPB SCH (16:14)
[2018-04-19] MEDS ORDERED: Clinimix E 5%-15% SOLUTION 2,000 ML with MVI, adult with vitamin K 10 ML IVC SCH (17:00)
[2018-04-20] MEDS: Acetaminophen IV 1,000 MG/100 ML INFUS..BTL IVPB SCH ×4 (00:25→18:42)
[2018-04-20] MEDS: MetroNIDAZOLE 500 MG/100 ML 500 MG/100 ML BAG IVPB SCH ×3 (00:26→18:21)
[2018-04-20] MEDS: *HR* Metoprolol 5 MG/5 ML VIAL IVP SCH ×4 (00:26→18:23)
[2018-04-20 03:39] LABS: Basophils % 0.8 %; Eosinophils # 0.2 K/mcL (0.0-0.6); Eosinophils % 3.1 %; Hematocrit 39.8 % (37.5-50.1); Hemoglobin 13.4 g/dL (12.9-16.9); Immature Granulocytes % 2.5 % (0-4); Lymphocytes # 0.3 K/mcL (0.6-4.6); Lymphocytes % 5.7 %; Mean Corpuscular HGB Conc 33.7 g/dL (31.6-35.5); Mean Corpuscular Hemoglobin 29.9 pg (28.0-33.3); Mean Corpuscular Volume 88.8 fL (83.0-100.0); Mean Platelet Volume 9.9 fL (9.4-12.4); Monocytes # 0.8 K/mcL (0.0-1.3); Monocytes % 14.3 %; Neutrophils # 3.9 K/mcL (1.6-8.9); Platelet Count 211 K/mcL (140-400); Red Blood Count 4.48 M/mcL (4.19-5.50); Segmented Neutrophils % 73.6 %
[2018-04-20] MEDS: Ipratropium/Albuterol Neb 3 ML IH SCH ×5 (03:55→19:45)
[2018-04-20] MEDS: Acetylcysteine 10% 2 ML INHSOL IH SCH ×5 (03:56→19:45)
[2018-04-20 03:59] LABS: BUN/Creatinine Ratio 24 (6-26); Blood Urea Nitrogen 15 mg/dL (6-20); Calcium 7.6 mg/dL (8.6-10.3); Carbon Dioxide 21 mEq/L (23-29); Chloride 108 mEq/L (98-107); Glucose 259 mg/dL (70-105); Osmolality,Calculated 294 (280-300); Phosphorous 2.2 mg/dL (2.7-4.5); Potassium 3.6 mEq/L (3.5-5.1); Sodium 137 mEq/L (136-145); Triglycerides 198 mg/dL (< 150); eGFR For Non-African Americans > 60 (> 60)
[2018-04-20] MEDS: Insulin LISPRO 300 UNITS/3 ML VIAL SQ SCH ×6 (06:06→20:14)
[2018-04-20] MEDS: Pantoprazole 40 MG VIAL IVP SCH (08:17)
[2018-04-20] MEDS: Levofloxacin 750 MG/150 ML 750 MG/150 ML BAG IVPB SCH (08:18)
--- NOTE | 2018-04-20 10:48 | General Surgery Progress Note ---
<Walter Gatica - Last Filed: 04/20/18 11:25> Date of Encounter: 04/20/18 Time of Encounter: 10:05 - Assessment and Plan (1) Acute appendicitis Current Visit: Yes Status: Acute Appendicitis with microperforation admitted on 04/16/18. Remains afebrile, with normalized WBC. Ileus with NG placed 250 ml out since midnight. Patient notes some improvement in pain, and endorses passing flatus today. Patient has not been ambulating Plan: -Continue supportive care and pain management -continue NG to LIWS, while awaiting improved bowel function -NPO -TPN with nutrition following -Ambulate in halls at least TID, discussed again with family and nursing -out of bed to chair TID -continue IV antibiotics -serial abdominal exams -repeat a.m. labs Qualifiers: Acute appendicitis type: with localized peritonitis Qualified Code(s): K35.3 - Acute appendicitis with localized peritonitis (2) Adynamic ileus Current Visit: Yes Status: Acute NPO/NG to LIWS awaiting bowel function return (3) T2DM (type 2 diabetes mellitus) Current Visit: Yes Status: Acute SSI Q4H Accu checks Qualifiers: Diabetes mellitus primary health organisation manager insulin use: unspecified shelter insulin use status Diabetes mellitus complication status: with unspecified complications Qualified Code(s): E11.8 - Type 2 diabetes mellitus with unspecified complications (4) HTN, goal below 130/80 Current Visit: Yes Status: Acute Blood pressure remains stable. Hold oral lisinopril while npo continue scheduled metoprolol Hydralazine available PRN. Subjective Patient reports: voiding w/o difficulty, flatus, no bowel movement, afebrile Narrative: Patient was seen and evaluated at the bedside, family present during evaluation. Patient states he still feels distended. Pain is less today. Denies nausea, vomiting. Hasn't been ambulating much per family. States he has passed flatus now, denies bowel movement. Objective Vital Signs - Last 8 Hours Temp Pulse Resp BP Pulse Ox 04/20/18 10:10 97.6 F 98 16 117/76 94 04/20/18 08:07 18 96 04/20/18 05:48 98.3 F 100 16 131/83 94 04/20/18 03:55 16 95 Intake and Output 0804/20/18 04/20/18 23:59 07:59 15:59 Intake Total 460 / 460 200 / 200 0 / 0 Output Total 0 / 0 1000 / 1000 0 / 0 Balance 460 / 460 -800 / -800 0 / 0 Intake: IV Fluids 460 / 460 200 / 200 0.9 % Sodium Chloride 1,000 ML 0 / 0 @ 85 mls/hr IVC .[id number] [facility] Rx #:[id number] Ofirmev 1,000 mg/100 ml 1,000 100 / 100 100 / 100 mg In 100 ml @ 400 mls/hr IVPB Q6HR [facility] Rx#:[id number] Flagyl Premix 500 MG/100 ML 500 100 / 100 100 / 100 mg In 100 ml @ 100 mls/hr IVPB Q8HR [facility] Rx#:[id number] Sodium Phosphate 30 MMOL In 0.9 260 / 260 % Sodium Chloride 250 ML @ 42 mls/hr IVPB ONCE ONE Rx#: [id number] Oral 0 / 0 0 / 0 0 / 0 Output: Urine 0 / 0 750 / 750 0 / 0 Gastric Drainage 250 / 250 0 / 0 Other: Meal NPO NPO Breakfast Percent of Meal Consumed 0% Blood Glucose* 180 250 218 - Labs 04/20/18 03:26 04/20/18 03:26 Diabetes panel 04/20/18 Range/Units 03:26 Sodium 137 (136-145) mEq/L Potassium 3.6 (3.5-5.1) mEq/L Chloride 108 H (98-107) mEq/L Carbon Dioxide 21 L (23-29) mEq/L BUN 15 (6-20) mg/dL Creatinine 0.63 L (0.70-1.30) mg/dL Glucose 259 H (70-105) mg/dL Calcium 7.6 L (8.6-10.3) mg/dL Triglycerides 198 H (< 150) mg/dL Calcium panel 04/20/18 Range/Units 03:26 Calcium 7.6 L (8.6-10.3) mg/dL Phosphorus 2.2 L (2.7-4.5) mg/dL Pituitary panel 04/20/18 Range/Units 03:26 Sodium 137 (136-145) mEq/L Potassium 3.6 (3.5-5.1) mEq/L Chloride 108 H (98-107) mEq/L Carbon Dioxide 21 L (23-29) mEq/L BUN 15 (6-20) mg/dL Creatinine 0.63 L (0.70-1.30) mg/dL Glucose 259 H (70-105) mg/dL Calcium 7.6 L (8.6-10.3) mg/dL Adrenal panel 04/20/18 Range/Units 03:26 Sodium 137 (136-145) mEq/L Potassium 3.6 (3.5-5.1) mEq/L Chloride 108 H (98-107) mEq/L Carbon Dioxide 21 L (23-29) mEq/L BUN 15 (6-20) mg/dL Creatinine 0.63 L (0.70-1.30) mg/dL Glucose 259 H (70-105) mg/dL Calcium 7.6 L (8.6-10.3) mg/dL Consult Discharge Plan - Plan Referrals: Julio César Mccarty MD [Primary Care Provider] - <Pradip Sung E - Last Filed: 04/20/18 13:37> Date of Encounter: 04/20/18 - Assessment and Plan (1) Acute appendicitis Current Visit: Yes Status: Acute Plan for CT scan of the abdomen and pelvis with oral contrast. Qualifiers: Acute appendicitis type: with localized peritonitis Qualified Code(s): K35.3 - Acute appendicitis with localized peritonitis Objective Vital Signs - Last 8 Hours Temp Pulse Resp BP Pulse Ox 04/20/18 10:10 97.6 F 98 16 117/76 94 04/20/18 08:07 18 96 04/20/18 05:48 98.3 F 100 16 131/83 94 Intake and Output 04/19/18 04/20/18 04/20/18 23:59 07:59 15:59 Intake Total 460 / 460 300 / 300 0 / 0 Output Total 0 / 0 1000 / 1000 350 / 350 Balance 460 / 460 -700 / -700 -350 / -350 Intake: IV Fluids 460 / 460 300 / 300 0.9 % Sodium Chloride 1,000 ML 0 / 0 @ 85 mls/hr IVC .[id number] [facility] Rx #:[id number] Ofirmev 1,000 mg/100 ml 1,000 100 / 100 200 / 200 mg In 100 ml @ 400 mls/hr IVPB Q6HR [facility] Rx#:[id number] Flagyl Premix 500 MG/100 ML 500 100 / 100 100 / 100 mg In 100 ml @ 100 mls/hr IVPB Q8HR [facility] Rx#:[id number] Sodium Phosphate 30 MMOL In 0.9 260 / 260 % Sodium Chloride 250 ML @ 42 mls/hr IVPB ONCE ONE Rx#: [id number] Oral 0 / 0 0 / 0 0 / 0 Output: Urine 0 / 0 750 / 750 350 / 350 Gastric Drainage 250 / 250 0 / 0 Other: Meal NPO NPO Lunch Percent of Meal Consumed 0% Blood Glucose* 180 250 228 - Labs 04/20/18 03:26 04/20/18 03:26 Diabetes panel 04/20/18 Range/Units 03:26 Sodium 137 (136-145) mEq/L Potassium 3.6 (3.5-5.1) mEq/L Chloride 108 H (98-107) mEq/L Carbon Dioxide 21 L (23-29) mEq/L BUN 15 (6-20) mg/dL Creatinine 0.63 L (0.70-1.30) mg/dL Glucose 259 H (70-105) mg/dL Calcium 7.6 L (8.6-10.3) mg/dL Triglycerides 198 H (< 150) mg/dL Calcium panel 04/20/18 Range/Units 03:26 Calcium 7.6 L (8.6-10.3) mg/dL Phosphorus 2.2 L (2.7-4.5) mg/dL Pituitary panel 04/20/18 Range/Units 03:26 Sodium 137 (136-145) mEq/L Potassium 3.6 (3.5-5.1) mEq/L Chloride 108 H (98-107) mEq/L Carbon Dioxide 21 L (23-29) mEq/L BUN 15 (6-20) mg/dL Creatinine 0.63 L (0.70-1.30) mg/dL Glucose 259 H (70-105) mg/dL Calcium 7.6 L (8.6-10.3) mg/dL Adrenal panel 04/20/18 Range/Units 03:26 Sodium 137 (136-145) mEq/L Potassium 3.6 (3.5-5.1) mEq/L Chloride 108 H (98-107) mEq/L Carbon Dioxide 21 L (23-29) mEq/L BUN 15 (6-20) mg/dL Creatinine 0.63 L (0.70-1.30) mg/dL Glucose 259 H (70-105) mg/dL Calcium 7.6 L (8.6-10.3) mg/dL
[2018-04-20] MEDS ORDERED: Isovue-370 500 ML INFUS..BTL IV ONE (13:42)
[2018-04-20] MEDS: Ondansetron 4 MG/2 ML VIAL IVP PRN (14:36)
[2018-04-20] MEDS ORDERED: Clinimix E 5%-15% SOLUTION 2,000 ML with MVI, adult with vitamin K 10 ML IVC SCH (17:00)
[2018-04-20] MEDS: 0.9 % Sodium Chloride 1,000 ML IVC SCH (20:09)
[2018-04-21] MEDS: Acetylcysteine 10% 2 ML INHSOL IH SCH ×7 (00:01→23:06)
[2018-04-21] MEDS: Ipratropium/Albuterol Neb 3 ML IH SCH ×7 (00:02→23:07)
[2018-04-21] MEDS: Acetaminophen IV 1,000 MG/100 ML INFUS..BTL IVPB SCH ×3 (00:25→13:14)
[2018-04-21] MEDS: Insulin LISPRO 300 UNITS/3 ML VIAL SQ SCH ×6 (00:26→20:12)
[2018-04-21] MEDS: 0.9 % Sodium Chloride 1,000 ML IVC SCH ×2 (04:42→13:17)
[2018-04-21 04:59] LABS: BUN/Creatinine Ratio 16 (6-26); Blood Urea Nitrogen 10 mg/dL (6-20); Calcium 8.1 mg/dL (8.6-10.3); Carbon Dioxide 24 mEq/L (23-29); Chloride 107 mEq/L (98-107); Glucose 215 mg/dL (70-105); Magnesium 1.9 mg/dL (1.6-2.6); Osmolality,Calculated 294 (280-300); Phosphorous 2.1 mg/dL (2.7-4.5); Potassium 3.3 mEq/L (3.5-5.1); Sodium 139 mEq/L (136-145); eGFR For Non-African Americans > 60 (> 60)
[2018-04-21] MEDS: *HR* Metoprolol 5 MG/5 ML VIAL IVP SCH ×4 (06:20→17:43)
[2018-04-21] MEDS: MetroNIDAZOLE 500 MG/100 ML 500 MG/100 ML BAG IVPB SCH ×3 (08:41→16:55)
[2018-04-21] MEDS: Pantoprazole 40 MG VIAL IVP SCH (08:44)
[2018-04-21 09:09] LABS: Hematocrit 39.5 % (37.5-50.1); Hemoglobin 13.2 g/dL (12.9-16.9); Mean Corpuscular HGB Conc 33.4 g/dL (31.6-35.5); Mean Corpuscular Hemoglobin 29.3 pg (28.0-33.3); Mean Corpuscular Volume 87.6 fL (83.0-100.0); Mean Platelet Volume 9.6 fL (9.4-12.4); Nucleated Red Blood Cells 0.3 /100 WBC (0); Platelet Count 224 K/mcL (140-400); Red Blood Count 4.51 M/mcL (4.19-5.50); Red Cell Distribution Width 13.9 % (11.5-14.5)
[2018-04-21 09:49] LABS: Eosinophils # 0.1 K/mcL (0.0-0.6); Lymphocytes # 0.2 K/mcL (0.6-4.6); Monocytes # 0.1 K/mcL (0.0-1.3); Neutrophils # 6.3 K/mcL (1.6-8.9); Platelet Estimate Normal (Normal)
[2018-04-21] MEDS: Levofloxacin 750 MG/150 ML 750 MG/150 ML BAG IVPB SCH (10:44)
--- NOTE | 2018-04-21 14:22 | General Surgery Progress Note ---
<Walter Gatica R - Last Filed: 04/21/18 14:24> Date of Encounter: 04/21/18 Time of Encounter: 08:20 - Assessment and Plan (1) Acute appendicitis Current Visit: Yes Status: Acute Appendicitis with microperforation admitted on 04/16/18. Remains afebrile, with normalized WBC. Ileus with NG placed 50 ml out in last 12 hours. Patient notes some improvement in pain, and endorses passing flatus today. CT of the abdomen yesterday did reveal a 5.7 x 5.6 cm fluid collection anterior to the cecum, concerning for abscess, new from initial CT. Plan: -IR consulted -Per IR possible percutaneous drainage of abscess today or tomorrow -Continue supportive care and pain management -continue NG to LIWS, while awaiting improved bowel function -NPO -TPN with nutrition following -Ambulate in halls at least TID -out of bed to chair TID -continue IV antibiotics -serial abdominal exams -repeat a.m. labs Qualifiers: Acute appendicitis type: with localized peritonitis Qualified Code(s): K35.3 - Acute appendicitis with localized peritonitis (2) Adynamic ileus Current Visit: Yes Status: Acute NPO/NG to LIWS awaiting bowel function return (3) T2DM (type 2 diabetes mellitus) Current Visit: Yes Status: Acute SSI Q4H Accu checks Qualifiers: Diabetes mellitus long term care phlebotomist insulin use: unspecified long term care phlebotomist insulin use status Diabetes mellitus complication status: with unspecified complications Qualified Code(s): E11.8 - Type 2 diabetes mellitus with unspecified complications (4) HTN, goal below 130/80 Current Visit: Yes Status: Acute Blood pressure remains stable. Hold oral lisinopril while npo continue scheduled metoprolol Hydralazine available PRN. Subjective Patient reports: no new complaints, voiding w/o difficulty, flatus, afebrile Narrative: Patient was seen and evaluated at the bedside this morning on rounds. The patient has no new complaints today. States he is still passing gas. States his abdominal pain is still minimal. Denies nausea, vomiting, diarrhea, fever. Patient reports that he has been ambulating hallways. Objective Vital Signs - Last 8 Hours Temp Pulse Resp BP Pulse Ox 04/21/18 12:00 20 92 04/21/18 09:54 98.3 F 91 16 118/73 93 04/21/18 08:00 20 96 04/21/18 06:47 97.5 F L 86 18 118/75 94 Intake and Output 04/20/18 04/21/18 04/21/18 23:59 07:59 15:59 Intake Total 350 / 350 300 / 300 0 / 0 Output Total 475 / 475 1250 / 1250 50 / 50 Balance -125 / -125 -950 / -950 -50 / -50 Intake: IV Fluids 350 / 350 300 / 300 0 / 0 0.9 % Sodium Chloride 1,000 ML 0 / 0 @ 85 mls/hr IVC .[id number] [facility] Rx #:[id number] Ofirmev 1,000 mg/100 ml 1,000 100 / 100 200 / 200 mg In 100 ml @ 400 mls/hr IVPB Q6HR [facility] Rx#:[id number] Levaquin Premix 750mg/150 mL 150 / 150 750 mg In 150 ml @ 100 mls/hr IVPB DAILY [facility] Rx#:[id number] Flagyl Premix 500 MG/100 ML 500 100 / 100 100 / 100 mg In 100 ml @ 100 mls/hr IVPB Q8HR [facility] Rx#:[id number] Oral 0 / 0 0 / 0 Output: Urine 475 / 475 950 / 950 0 / 0 Gastric Tube Lavage Amount 300 / 300 Left Nare 300 / 300 Gastric Drainage 50 / 50 Left Nare 50 / 50 Other: Meal NPO Dinner NPO LUNCH Percent of Meal Consumed 0% Weight 96.9 kg Blood Glucose* 207 203 189 Patient Weight 04/21/18 23:59 Weight 96.9 kg - General physical appearance well nourished, no distress, no pain - Eyes PERRL, normal ocular movement - ENT normal mucosa, atraumatic, normocephalic - Neck Neck exam: trachea midline - Respiratory normal expansion, normal respiratory effort, clear to auscultation - Cardiovascular Cardiovascular exam: Present: RRR - Abdomen Abdomen: Present: bowel sounds present, soft, tender (Tenderness to deep palpation of the right lower quadrant), guarding (Involuntary guarding to palpation of the right lower quadrant). Absent: rebound Abdominal Tenderness: RLQ - Integumentary no rash - Neurologic CN 2-12 grossly intact - Psychiatric oriented to time, oriented to person, oriented to place, speech is normal - Labs 04/21/18 08:16 04/21/18 04:00 Diabetes panel 04/21/18 Range/Units 04:00 Sodium 139 (136-145) mEq/L Potassium 3.3 L (3.5-5.1) mEq/L Chloride 107 (98-107) mEq/L Carbon Dioxide 24 (23-29) mEq/L BUN 10 (6-20) mg/dL Creatinine 0.61 L (0.70-1.30) mg/dL Glucose 215 H (70-105) mg/dL Calcium 8.1 L (8.6-10.3) mg/dL Calcium panel 04/21/18 Range/Units 04:00 Calcium 8.1 L (8.6-10.3) mg/dL Phosphorus 2.1 L (2.7-4.5) mg/dL Pituitary panel 04/21/18 Range/Units 04:00 Sodium 139 (136-145) mEq/L Potassium 3.3 L (3.5-5.1) mEq/L Chloride 107 (98-107) mEq/L Carbon Dioxide 24 (23-29) mEq/L BUN 10 (6-20) mg/dL Creatinine 0.61 L (0.70-1.30) mg/dL Glucose 215 H (70-105) mg/dL Calcium 8.1 L (8.6-10.3) mg/dL Adrenal panel 04/21/18 Range/Units 04:00 Sodium 139 (136-145) mEq/L Potassium 3.3 L (3.5-5.1) mEq/L Chloride 107 (98-107) mEq/L Carbon Dioxide 24 (23-29) mEq/L BUN 10 (6-20) mg/dL Creatinine 0.61 L (0.70-1.30) mg/dL Glucose 215 H (70-105) mg/dL Calcium 8.1 L (8.6-10.3) mg/dL Consult Discharge Plan - Plan Referrals: Julio César Mccarty MD [Primary Care Provider] - <Prabhu Hussein - Last Filed: 04/21/18 16:07> Date of Encounter: 04/21/18 Objective Vital Signs - Last 8 Hours Temp Pulse Resp BP Pulse Ox 04/21/18 15:36 98.4 F 88 16 96/50 95 04/21/18 12:00 20 92 04/21/18 09:54 98.3 F 91 16 118/73 93 Intake and Output 04/21/18 04/21/18 04/21/18 07:59 15:59 23:59 Intake Total 300 / 300 100 / 100 Output Total 1250 / 1250 275 / 275 Balance -950 / -950 -175 / -175 Intake: IV Fluids 300 / 300 100 / 100 0.9 % Sodium Chloride 1,000 ML 0 / 0 @ 85 mls/hr IVC .[id number] [facility] Rx #:[id number] Ofirmev 1,000 mg/100 ml 1,000 200 / 200 100 / 100 mg In 100 ml @ 400 mls/hr IVPB Q6HR [facility] Rx#:[id number] Flagyl Premix 500 MG/100 ML 500 100 / 100 mg In 100 ml @ 100 mls/hr IVPB Q8HR [facility] Rx#:[id number] Oral 0 / 0 Output: Urine 950 / 950 175 / 175 Gastric Tube Lavage Amount 300 / 300 Left Nare 300 / 300 Gastric Drainage 100 / 100 Left Nare 100 / 100 Other: Meal NPO LUNCH Weight 96.9 kg Blood Glucose* 203 186 Patient Weight 04/21/18 23:59 Weight 96.9 kg - Labs 04/21/18 08:16 04/21/18 04:00 Diabetes panel 04/21/18 Range/Units 04:00 Sodium 139 (136-145) mEq/L Potassium 3.3 L (3.5-5.1) mEq/L Chloride 107 (98-107) mEq/L Carbon Dioxide 24 (23-29) mEq/L BUN 10 (6-20) mg/dL Creatinine 0.61 L (0.70-1.30) mg/dL Glucose 215 H (70-105) mg/dL Calcium 8.1 L (8.6-10.3) mg/dL Calcium panel 04/21/18 Range/Units 04:00 Calcium 8.1 L (8.6-10.3) mg/dL Phosphorus 2.1 L (2.7-4.5) mg/dL Pituitary panel 04/21/18 Range/Units 04:00 Sodium 139 (136-145) mEq/L Potassium 3.3 L (3.5-5.1) mEq/L Chloride 107 (98-107) mEq/L Carbon Dioxide 24 (23-29) mEq/L BUN 10 (6-20) mg/dL Creatinine 0.61 L (0.70-1.30) mg/dL Glucose 215 H (70-105) mg/dL Calcium 8.1 L (8.6-10.3) mg/dL Adrenal panel 04/21/18 Range/Units 04:00 Sodium 139 (136-145) mEq/L Potassium 3.3 L (3.5-5.1) mEq/L Chloride 107 (98-107) mEq/L Carbon Dioxide 24 (23-29) mEq/L BUN 10 (6-20) mg/dL Creatinine 0.61 L (0.70-1.30) mg/dL Glucose 215 H (70-105) mg/dL Calcium 8.1 L (8.6-10.3) mg/dL - Attending Attestation I examined this patient and my medical decision-making was reviewed with the Resident Physician. I agree with the documented findings, disposition and treatment plan as described except to the extent set forth below. The patient is seen and evaluated on morning rounds with the resident. He has nasogastric tube in place and very few bowel sounds. I personally reviewed the CAT scan images. He has a 5 cm x 5 cm fluid collection in the area of the appendectomy. This may represent abscess. I discussed this with interventional radiologist, Dr. Hernandez. He is agreed to place a CAT scan directed drain. Hopefully this will help resolve his abscess. White blood cell count is normal. Prabhu Hussein MD FACS
[2018-04-21] MEDS: Clinimix E 5%-15% SOLUTION 2,000 ML with MVI, adult with vitamin K 10 ML IVC SCH (17:44)
[2018-04-22] MEDS: MetroNIDAZOLE 500 MG/100 ML 500 MG/100 ML BAG IVPB SCH ×3 (00:52→16:10)
[2018-04-22] MEDS: *HR* Metoprolol 5 MG/5 ML VIAL IVP SCH ×4 (00:52→17:16)
[2018-04-22] MEDS: Insulin LISPRO 300 UNITS/3 ML VIAL SQ SCH ×6 (00:52→20:02)
[2018-04-22] MEDS: 0.9 % Sodium Chloride 1,000 ML IVC SCH ×2 (03:03→10:28)
[2018-04-22] MEDS: Acetylcysteine 10% 2 ML INHSOL IH SCH ×6 (04:00→23:27)
[2018-04-22] MEDS: Ipratropium/Albuterol Neb 3 ML IH SCH ×6 (04:01→23:27)
[2018-04-22 04:32] LABS: Eosinophils # 0.2 K/mcL (0.0-0.6); Hematocrit 39.4 % (37.5-50.1); Hemoglobin 13.3 g/dL (12.9-16.9); Mean Corpuscular HGB Conc 33.8 g/dL (31.6-35.5); Mean Corpuscular Hemoglobin 29.6 pg (28.0-33.3); Mean Corpuscular Volume 87.6 fL (83.0-100.0); Mean Platelet Volume 9.9 fL (9.4-12.4); Nucleated Red Blood Cells 0.4 /100 WBC (0); Platelet Count 230 K/mcL (140-400)
[2018-04-22 04:50] LABS: BUN/Creatinine Ratio 17 (6-26); Blood Urea Nitrogen 10 mg/dL (6-20); Calcium 8.2 mg/dL (8.6-10.3); Carbon Dioxide 27 mEq/L (23-29); Chloride 106 mEq/L (98-107); Glucose 231 mg/dL (70-105); Magnesium 1.8 mg/dL (1.6-2.6); Osmolality,Calculated 298 (280-300); Phosphorous 2.4 mg/dL (2.7-4.5); Potassium 3.6 mEq/L (3.5-5.1); Sodium 141 mEq/L (136-145); eGFR For Non-African Americans > 60 (> 60)
[2018-04-22 04:52] LABS: Lymphocytes # 0.7 K/mcL (0.6-4.6); Monocytes # 0.3 K/mcL (0.0-1.3); Neutrophils # 7.2 K/mcL (1.6-8.9); Platelet Estimate Normal (Normal)
[2018-04-22] MEDS: Pantoprazole 40 MG VIAL IVP SCH (08:02)
[2018-04-22] MEDS: Levofloxacin 750 MG/150 ML 750 MG/150 ML BAG IVPB SCH (08:02)
--- NOTE | 2018-04-22 09:11 | General Surgery Progress Note ---
Date of Encounter: 04/22/18 Time of Encounter: 09:08 - Assessment and Plan (1) Acute perforated appendicitis Current Visit: Yes Status: Acute continue npo, await return of bowel function, currently with ileus which is not unexpected given clinical course ngt to LIWS prn pain control IR to place drain in abscess today continue antibiotics OOB/ambulate, up in chair at least BID continue TPN (2) Intra-abdominal abscess Current Visit: Yes Status: Acute IR to place drain today, cultures pending (3) Adynamic ileus Current Visit: Yes Status: Acute continue npo, ngt liws antibiotics await return of bowel function Subjective Patient reports: feels better, still having pain, pain is less, no flatus, no bowel movement, afebrile Narrative: denies nausea, is distended Objective Vital Signs - Last 8 Hours Temp Pulse Resp BP Pulse Ox 04/22/18 07:39 14 93 04/22/18 07:19 98.0 F 89 14 119/78 93 04/22/18 04:20 98.3 F 98 17 122/75 93 04/22/18 04:01 18 95 Intake and Output 04/21/18 04/22/18 04/22/18 23:59 07:59 15:59 Intake Total 250 / 250 100 / 100 250 / 250 Output Total 800 / 800 725 / 725 Balance -550 / -550 -625 / -625 250 / 250 Intake: IV Fluids 250 / 250 100 / 100 250 / 250 Intralipid 20% 250 ML @ 21 mls/ 250 / 250 hr IVPB DAILY@1700 [facility] Rx#: [id number] Levaquin Premix 750mg/150 mL 150 / 150 750 mg In 150 ml @ 100 mls/hr IVPB DAILY [facility] Rx#:[id number] Flagyl Premix 500 MG/100 ML 500 100 / 100 100 / 100 mg In 100 ml @ 100 mls/hr IVPB Q8HR [facility] Rx#:[id number] Oral 0 / 0 0 / 0 Output: Urine 800 / 800 725 / 725 Gastric Drainage 0 / 0 0 / 0 Other: Meal NPO Dinner Percent of Meal Consumed 0% Weight 96 kg Blood Glucose* 220 212 Patient Weight 04/22/18 23:59 Weight 96 kg - General physical appearance well developed, well nourished, no distress - Eyes PERRL, normal ocular movement - ENT normal mucosa, normocephalic - Neck Neck exam: trachea midline - Respiratory normal expansion, clear to auscultation - Cardiovascular Cardiovascular exam: Present: RRR - Abdomen Abdomen: Present: soft, tympanic, distended, tender. Absent: bowel sounds present, guarding, rebound Abdominal Tenderness: RLQ - Integumentary no rash, no growths - Neurologic CN 2-12 grossly intact - Musculoskeletal normal posture - Psychiatric oriented to time, oriented to person, oriented to place, speech is normal, memory intact - Labs 04/22/18 04:00 04/22/18 04:00 Short CBC 04/22/18 04/21/18 Range/Units 04:00 08:16 WBC 8.4 6.8 (4.3-11.1) K/mcL Hgb 13.3 13.2 (12.9-16.9) g/dL Hct 39.4 39.5 (37.5-50.1) % Plt Count 230 224 (140-400) K/mcL Neutrophils # 7.2 6.3 (1.6-8.9) K/mcL BMP 04/22/18 Range/Units 04:00 Sodium 141 (136-145) mEq/L Potassium 3.6 (3.5-5.1) mEq/L Chloride 106 (98-107) mEq/L Carbon Dioxide 27 (23-29) mEq/L BUN 10 (6-20) mg/dL Creatinine 0.59 L (0.70-1.30) mg/dL Glucose 231 H (70-105) mg/dL Calcium 8.2 L (8.6-10.3) mg/dL Vital Signs Temp Pulse Resp BP Pulse Ox 04/22/18 07:39 14 93 04/22/18 07:19 98.0 F 89 14 119/78 93 04/22/18 04:20 98.3 F 98 17 122/75 93 04/22/18 04:01 18 95 04/21/18 23:12 98.8 F 91 16 121/81 94 04/21/18 23:07 17 94 04/21/18 20:21 18 93 04/21/18 19:20 98.4 F 87 16 120/80 94 04/21/18 17:48 88 119/78 04/21/18 16:03 18 96 04/21/18 15:36 98.4 F 88 16 96/50 95 04/21/18 12:00 20 92 04/21/18 09:54 98.3 F 91 16 118/73 93 Intake and Output 04/21/18 04/22/18 04/22/18 23:59 07:59 15:59 Intake Total 250 / 250 100 / 100 250 / 250 Output Total 800 / 800 725 / 725 Balance -550 / -550 -625 / -625 250 / 250 Intake: IV Fluids 250 / 250 100 / 100 250 / 250 Intralipid 20% 250 ML @ 21 mls/ 250 / 250 hr IVPB DAILY@1700 [facility] Rx#: [id number] Levaquin Premix 750mg/150 mL 150 / 150 750 mg In 150 ml @ 100 mls/hr IVPB DAILY [facility] Rx#:[id number] Flagyl Premix 500 MG/100 ML 500 100 / 100 100 / 100 mg In 100 ml @ 100 mls/hr IVPB Q8HR [facility] Rx#:[id number] Oral 0 / 0 0 / 0 Output: Urine 800 / 800 725 / 725 Gastric Drainage 0 / 0 0 / 0 Other: Meal NPO Dinner Percent of Meal Consumed 0% Weight 96 kg Blood Glucose* 220 212 Patient Weight 04/22/18 23:59 Weight 96 kg Consult Discharge Plan - Plan Referrals: Julio César Mccarty MD [Primary Care Provider] -
--- NOTE | 2018-04-22 09:32 | IR Procedure Note ---
Date of procedure: 04/22/18 Consent Obtained: Written consent Timeout: Correct patient and procedure verified, Correct site verified, Time out performed, Skin prep completed Indications: RLQ abscess Procedure Performed: drainage Was there an licensed physical therapy assistant present: No Site/Technique: RLQ, 12F drain Results/Findings: 70cc pus, sent for cultures Estimated blood loss (cc): 0 Complications: None; Tolerated procedure well Post Procedure Treatment Plan: suction bulb Specimen: 70cc pus
[2018-04-22 10:51] LABS: INR 1.3; Prothrombin Time 14.7 Seconds (9.4-12.1)
[2018-04-22] MEDS: Clinimix E 5%-15% SOLUTION 2,000 ML with MVI, adult with vitamin K 10 ML IVC SCH ×2 (17:18→17:56)
[2018-04-23] MEDS: *HR* Metoprolol 5 MG/5 ML VIAL IVP SCH ×4 (00:23→17:03)
[2018-04-23] MEDS: MetroNIDAZOLE 500 MG/100 ML 500 MG/100 ML BAG IVPB SCH ×3 (00:23→16:00)
[2018-04-23] MEDS: 0.9 % Sodium Chloride 1,000 ML IVC SCH ×2 (00:24→10:15)
[2018-04-23] MEDS: Insulin LISPRO 300 UNITS/3 ML VIAL SQ SCH ×6 (00:25→21:25)
[2018-04-23] MEDS: Ipratropium/Albuterol Neb 3 ML IH SCH ×6 (03:31→19:40)
[2018-04-23] MEDS: Acetylcysteine 10% 2 ML INHSOL IH SCH ×5 (03:31→19:41)
[2018-04-23 05:39] LABS: BUN/Creatinine Ratio 18 (6-26); Blood Urea Nitrogen 11 mg/dL (6-20); Calcium 8.4 mg/dL (8.6-10.3); Carbon Dioxide 26 mEq/L (23-29); Chloride 106 mEq/L (98-107); Glucose 208 mg/dL (70-105); Magnesium 1.9 mg/dL (1.6-2.6); Osmolality,Calculated 295 (280-300); Phosphorous 2.8 mg/dL (2.7-4.5); Potassium 3.7 mEq/L (3.5-5.1); Sodium 140 mEq/L (136-145); eGFR For Non-African Americans > 60 (> 60)
[2018-04-23 07:24] LABS: Basophils # 0.1 K/mcL (0.0-0.2); Basophils % 0.8 %; Eosinophils # 0.2 K/mcL (0.0-0.6); Eosinophils % 2.1 %; Hematocrit 36.4 % (37.5-50.1); Hemoglobin 12.1 g/dL (12.9-16.9); Immature Granulocytes % 7.6 % (0-4); Lymphocytes # 0.8 K/mcL (0.6-4.6); Lymphocytes % 9.6 %; Mean Corpuscular HGB Conc 33.2 g/dL (31.6-35.5); Mean Corpuscular Hemoglobin 29.9 pg (28.0-33.3); Mean Corpuscular Volume 89.9 fL (83.0-100.0); Mean Platelet Volume 9.6 fL (9.4-12.4); Monocytes # 0.8 K/mcL (0.0-1.3); Neutrophils # 6.2 K/mcL (1.6-8.9); Platelet Count 245 K/mcL (140-400); Red Blood Count 4.05 M/mcL (4.19-5.50); Red Cell Distribution Width 13.9 % (11.5-14.5); Segmented Neutrophils % 70.9 %
[2018-04-23 08:51] LABS: Platelet Estimate Normal (Normal)
[2018-04-23] MEDS: Levofloxacin 750 MG/150 ML 750 MG/150 ML BAG IVPB SCH (09:03)
[2018-04-23] MEDS: Metoclopramide 10 MG/2 ML VIAL IVP SCH ×4 (09:07→17:03)
[2018-04-23] MEDS: Pantoprazole 40 MG VIAL IVP SCH (09:07)
[2018-04-23] MEDS ORDERED: *HR* LORazepam 2 MG/ML VIAL IVP PRN (09:26)
[2018-04-23] MEDS ORDERED: *HR* Dextrose 50 % in Water (Syg) 50 ML SYRINGE IVP PRN (09:55)
[2018-04-23] MEDS ORDERED: Dextrose Gel 15 GM/37.5 ML TUBE PO PRN ×2 (09:55)
[2018-04-23] MEDS ORDERED: D5% in Water 1,000 ML IVC PRN (09:55)
[2018-04-23] MEDS: Chloraseptic Spray 177 ML BOTTLE MM SCH ×3 (10:03→17:27)
--- NOTE | 2018-04-23 11:46 | General Surgery Progress Note ---
Date of Encounter: 04/23/18 Time of Encounter: 09:35 - Assessment and Plan (1) Acute perforated appendicitis Current Visit: Yes Status: Acute continue npo, await return of bowel function, currently with ileus which is not unexpected given clinical course ngt to LIWS, abdomen soft, minimal discomfort with palpation prn pain control JIL drain with serous output continue antibiotics OOB/ambulate, up in chair at least BID continue TPN (2) Intra-abdominal abscess Current Visit: Yes Status: Acute JIL drain in place,cultures pending, continue abx (3) Adynamic ileus Current Visit: Yes Status: Acute continue npo, ngt liws antibiotics await return of bowel function KUB's reviewed, ngt advanted Subjective Patient reports: no new complaints, feels better, still having pain, pain is less, no flatus, no bowel movement, afebrile, other (distended, no nausea) Objective Vital Signs - Last 8 Hours Temp Pulse Resp BP Pulse Ox 04/23/18 10:19 97.1 F L 95 18 134/82 95 04/23/18 07:07 97.9 F 93 16 120/81 92 04/23/18 05:18 97.8 F 94 16 121/76 93 04/23/18 04:38 16 95 Intake and Output 04/22/18 04/23/18 04/23/18 23:59 07:59 15:59 Intake Total 1510 / 1510 1350 / 1350 100 / 100 Output Total 250 / 250 1020 / 1020 200 / 200 Balance 1260 / 1260 330 / 330 -100 / -100 Intake: IV Fluids 1510 / 1510 1350 / 1350 100 / 100 0.9 % Sodium Chloride 1,000 ML 1000 / 1000 @ 85 mls/hr IVC .[id number] [facility] Rx #:[id number] Clinimix E 5%-15% SOLUTION 2, 1410 / 1410 000 ML @ 65 mls/hr IVC .Q24H [facility] with M.v.i. Adult 10 ml Rx# :[id number] Intralipid 20% 250 ML @ 21 mls/ 250 / 250 hr IVPB DAILY@1700 [facility] Rx#: [id number] Flagyl Premix 500 MG/100 ML 500 100 / 100 100 / 100 100 / 100 mg In 100 ml @ 100 mls/hr IVPB Q8HR [facility] Rx#:[id number] Oral 0 / 0 0 / 0 Output: Urine 200 / 200 700 / 700 200 / 200 Gastric Drainage 50 / 50 300 / 300 0 / 0 Wound Drainage 20 / 20 Right Lower Abdomen 20 / 20 Other: Meal NPO DINNER NPO BREAKFAST Blood Glucose* 206 197 - General physical appearance well developed, well nourished, no distress - Eyes PERRL, normal ocular movement - ENT normal mucosa, normocephalic - Neck Neck exam: trachea midline - Respiratory normal expansion, clear to auscultation - Cardiovascular Cardiovascular exam: Present: RRR - Abdomen Abdomen: Present: soft, distended, tender (minimal RLQ). Absent: bowel sounds present, guarding, rebound Additional Comments: JIL with serous output - Integumentary no rash, no growths - Neurologic CN 2-12 grossly intact - Musculoskeletal normal posture - Psychiatric oriented to time, oriented to person, oriented to place, speech is normal, memory intact - Labs 04/23/18 06:24 04/23/18 04:57 Vital Signs Temp Pulse Resp BP Pulse Ox 04/23/18 10:19 97.1 F L 95 18 134/82 95 04/23/18 07:07 97.9 F 93 16 120/81 92 04/23/18 05:18 97.8 F 94 16 121/76 93 04/23/18 04:38 16 95 04/23/18 00:02 97.6 F 90 18 139/84 93 04/22/18 20:42 98.1 F 96 16 132/76 95 04/22/18 19:38 15 94 04/22/18 16:10 15 94 04/22/18 14:55 97.9 F 92 15 126/92 94 Intake and Output 04/22/18 04/23/18 04/23/18 23:59 07:59 15:59 Intake Total 1510 / 1510 1350 / 1350 100 / 100 Output Total 250 / 250 1020 / 1020 200 / 200 Balance 1260 / 1260 330 / 330 -100 / -100 Intake: IV Fluids 1510 / 1510 1350 / 1350 100 / 100 0.9 % Sodium Chloride 1,000 ML 1000 / 1000 @ 85 mls/hr IVC .[id number] [facility] Rx #:[id number] Clinimix E 5%-15% SOLUTION 2, 1410 / 1410 000 ML @ 65 mls/hr IVC .Q24H [facility] with M.v.i. Adult 10 ml Rx# :[id number] Intralipid 20% 250 ML @ 21 mls/ 250 / 250 hr IVPB DAILY@1700 [facility] Rx#: [id number] Flagyl Premix 500 MG/100 ML 500 100 / 100 100 / 100 100 / 100 mg In 100 ml @ 100 mls/hr IVPB Q8HR [facility] Rx#:[id number] Oral 0 / 0 0 / 0 Output: Urine 200 / 200 700 / 700 200 / 200 Gastric Drainage 50 / 50 300 / 300 0 / 0 Wound Drainage 20 / 20 Right Lower Abdomen 20 / 20 Other: Meal NPO DINNER NPO BREAKFAST Blood Glucose* 206 197 Short CBC 04/23/18 Range/Units 06:24 WBC 8.8 (4.3-11.1) K/mcL Hgb 12.1 L (12.9-16.9) g/dL Hct 36.4 L (37.5-50.1) % Plt Count 245 (140-400) K/mcL Neutrophils # 6.2 (1.6-8.9) K/mcL BMP 04/23/18 Range/Units 04:57 Sodium 140 (136-145) mEq/L Potassium 3.7 (3.5-5.1) mEq/L Chloride 106 (98-107) mEq/L Carbon Dioxide 26 (23-29) mEq/L BUN 11 (6-20) mg/dL Creatinine 0.60 L (0.70-1.30) mg/dL Glucose 208 H (70-105) mg/dL Calcium 8.4 L (8.6-10.3) mg/dL Consult Discharge Plan - Plan Referrals: Julio César Mccraty MD [Primary Care Provider] -
[2018-04-23] MEDS: Acetaminophen IV 1,000 MG/100 ML INFUS..BTL IVPB SCH ×2 (12:28→17:14)
--- NOTE | 2018-04-23 12:36 | Electrocardiograph Report ---
[address] [address] Test Date: 2018-04-19 Pat Name: Kurt Marsh Department: 115 Room: 3A Gender: M Can Pusher: : 1970 Requested By: Marci Montesinos Order Number: [id number] Reading MD: Wyatt Lopes Measurements Intervals Olla Rate: 93 P: 20 PA: 145 QRS: 14 QRSD: 87 T: 14 QT: 356 QTc: 407 Interpretive Statements SINUS RHYTHM Electronically Signed On 04-23-2018 12:34:58 EDT by Wyatt Lopes
[2018-04-23] MEDS: Clinimix E 5%-15% SOLUTION 2,000 ML with MVI, adult with vitamin K 10 ML IVC SCH ×2 (17:17→17:34)
[2018-04-24] MEDS: Acetylcysteine 10% 2 ML INHSOL IH SCH ×7 (00:04→23:29)
[2018-04-24] MEDS: Ipratropium/Albuterol Neb 3 ML IH SCH ×7 (00:05→23:29)
[2018-04-24] MEDS: MetroNIDAZOLE 500 MG/100 ML 500 MG/100 ML BAG IVPB SCH ×3 (00:54→17:35)
[2018-04-24] MEDS: *HR* Metoprolol 5 MG/5 ML VIAL IVP SCH ×4 (00:54→17:38)
[2018-04-24] MEDS: Metoclopramide 10 MG/2 ML VIAL IVP SCH ×4 (00:55→17:38)
[2018-04-24] MEDS: Acetaminophen IV 1,000 MG/100 ML INFUS..BTL IVPB SCH ×4 (00:56→18:30)
[2018-04-24] MEDS: Insulin LISPRO 300 UNITS/3 ML VIAL SQ SCH ×6 (00:59→22:49)
[2018-04-24] MEDS: Chloraseptic Spray 177 ML BOTTLE MM SCH ×5 (01:00→22:48)
[2018-04-24] MEDS: Levofloxacin 750 MG/150 ML 750 MG/150 ML BAG IVPB SCH (08:06)
[2018-04-24] MEDS: Pantoprazole 40 MG VIAL IVP SCH (08:07)
[2018-04-24] MEDS ORDERED: Methylnaltrexone 12 MG/0.6 ML SYRINGE SQ ONE (10:31)
--- NOTE | 2018-04-24 10:35 | General Surgery Progress Note ---
Date of Encounter: 04/24/18 Time of Encounter: 10:30 - Assessment and Plan (1) Acute appendicitis Current Visit: Yes Status: Acute Appendicitis with microperforation admitted on 04/16/18. Vital signs and CBC have remained stable since admission. NG in place 850 mL since midnight, does not appear to have withdrawn overnight. Pigtail drain in place <5mL draining since midnight. SBFT yesterday did not reveal SBO Plan: -Supportive care and pain management -NG to LIWS, while awaiting return of bowel function -NPO ice chips and popsicles okay -TPN with nutrition following -Ambulate in halls at least TID -out of bed to chair TID -continue IV antibiotics -serial abdominal exams -Incentive spirometry Qualifiers: Acute appendicitis type: with localized peritonitis Qualified Code(s): K35.3 - Acute appendicitis with localized peritonitis (2) Adynamic ileus Current Visit: Yes Status: Acute SBFT negative for obstruction Plan: NPO ice chips NG to LIWS awaiting bowel function return Metoclopramide started yesterday Will begin methynaltrexone (3) T2DM (type 2 diabetes mellitus) Current Visit: Yes Status: Chronic SSI High scale Q4H Accu checks Qualifiers: Diabetes mellitus inspector balance bridge insulin use: unspecified alf insulin use status Diabetes mellitus complication status: with unspecified complications Qualified Code(s): E11.8 - Type 2 diabetes mellitus with unspecified complications (4) HTN, goal below 130/80 Current Visit: Yes Status: Chronic Blood pressure remains stable. Hold oral lisinopril while npo continue scheduled metoprolol Hydralazine available PRN. Subjective Patient reports: no new complaints, pain is less, voiding w/o difficulty, flatus , no bowel movement, afebrile Narrative: Patient reporting no interval change. Pain remains less and well controlled. Abdomen distended and tympanic. Passing flatus with no bowel movement. Tolerated SBFT study yesterday well. Denies nausea, vomiting, fever. Reports OOB to chair and ambulating daily. Objective Vital Signs - Last 8 Hours Temp Pulse Resp BP Pulse Ox 04/24/18 07:52 18 92 04/24/18 04:20 97.8 F 93 18 126/79 92 Intake and Output 04/23/18 04/24/18 04/24/18 23:59 07:59 15:59 Intake Total 200 / 200 450 / 450 Output Total 1700 / 1700 225 / 225 1250 / 1250 Balance -1500 / -1500 225 / 225 -1250 / -1250 Intake: IV Fluids 200 / 200 450 / 450 Ofirmev 1,000 mg/100 ml 1,000 100 / 100 200 / 200 mg In 100 ml @ 400 mls/hr IVPB Q6HR [facility] Rx#:[id number] Levaquin Premix 750mg/150 mL 150 / 150 750 mg In 150 ml @ 100 mls/hr IVPB DAILY [facility] Rx#:[id number] Flagyl Premix 500 MG/100 ML 500 100 / 100 100 / 100 mg In 100 ml @ 100 mls/hr IVPB Q8HR [facility] Rx#:[id number] Oral 0 / 0 0 / 0 Output: Urine 500 / 500 225 / 225 400 / 400 Gastric Drainage 1200 / 1200 850 / 850 Wound Drainage 0 / 0 0 / 0 Right Lower Abdomen 0 / 0 0 / 0 Other: Meal NPO Dinner NPO for breakfast Weight 96.3 kg Blood Glucose* 218 242 262 Patient Weight 04/24/18 23:59 Weight 96.3 kg - General physical appearance well nourished, no distress, no pain - Eyes PERRL, normal ocular movement - ENT normal mucosa, atraumatic, normocephalic, Other (NG tube in place, appears it has not been withdrawn today ) - Neck Neck exam: no masses, trachea midline - Respiratory normal expansion, normal respiratory effort, clear to auscultation - Cardiovascular Cardiovascular exam: Present: RRR - Abdomen Abdomen: Present: soft, tympanic, distended, tender (mildly tender to deep palpation of the RLQ). Absent: bowel sounds present, guarding, rebound - Integumentary no rash - Neurologic CN 2-12 grossly intact - Musculoskeletal normal gait, normal posture - Psychiatric oriented to time, oriented to person, oriented to place, speech is normal - Labs 04/23/18 06:24 04/23/18 04:57 Consult Discharge Plan - Plan Referrals: Julio César Mccarty MD [Primary Care Provider] -
[2018-04-24] MEDS ORDERED: *HR* Dextrose 50 % in Water (Syg) 50 ML SYRINGE IVP PRN (11:48)
[2018-04-24] MEDS ORDERED: Dextrose Gel 15 GM/37.5 ML TUBE PO PRN ×2 (11:48)
[2018-04-24] MEDS ORDERED: D5% in Water 1,000 ML IVC PRN (11:48)
[2018-04-24 13:12] LABS: BUN/Creatinine Ratio 24 (6-26); Blood Urea Nitrogen 15 mg/dL (6-20); Calcium 8.5 mg/dL (8.6-10.3); Carbon Dioxide 29 mEq/L (23-29); Chloride 105 mEq/L (98-107); Glucose 184 mg/dL (70-105); Magnesium 1.9 mg/dL (1.6-2.6); Osmolality,Calculated 296 (280-300); Potassium 3.7 mEq/L (3.5-5.1); Sodium 140 mEq/L (136-145); eGFR For Non-African Americans > 60 (> 60)
[2018-04-24] MEDS ORDERED: Clinimix E 5%-15% SOLUTION 2,000 ML with MVI, adult with vitamin K 10 ML, Insulin Hum... IVC SCH (17:00)
[2018-04-24] MEDS: Clinimix E 5%-15% SOLUTION 2,000 ML with MVI, adult with vitamin K 10 ML IVC SCH (18:45)
[2018-04-24] MEDS: Insulin DETEMIR 100 UNIT/ML X5UNITS SQ SCH (22:50)
[2018-04-25] MEDS: MetroNIDAZOLE 500 MG/100 ML 500 MG/100 ML BAG IVPB SCH ×3 (01:31→15:36)
[2018-04-25] MEDS: Insulin LISPRO 300 UNITS/3 ML VIAL SQ SCH ×7 (01:31→20:53)
[2018-04-25] MEDS: Metoclopramide 10 MG/2 ML VIAL IVP SCH ×4 (01:32→18:03)
[2018-04-25] MEDS: *HR* Metoprolol 5 MG/5 ML VIAL IVP SCH ×4 (01:32→18:03)
[2018-04-25] MEDS: Acetaminophen IV 1,000 MG/100 ML INFUS..BTL IVPB SCH ×3 (01:33→11:41)
[2018-04-25] MEDS: Acetylcysteine 10% 2 ML INHSOL IH SCH ×6 (03:29→23:10)
[2018-04-25] MEDS: Ipratropium/Albuterol Neb 3 ML IH SCH ×6 (03:29→23:10)
[2018-04-25 05:42] LABS: Alanine Aminotransferase 13 Units/L (7-52); Albumin 3.1 g/dL (3.5-5.7); Alkaline Phosphatase 89 Units/L (34-104); Aspartate Amino Transferase 12 Units/L (13-39); BUN/Creatinine Ratio 20 (6-26); Bilirubin,Total 0.3 mg/dL (0.3-1.0); Blood Urea Nitrogen 13 mg/dL (6-20); Calcium 8.3 mg/dL (8.6-10.3); Carbon Dioxide 27 mEq/L (23-29); Chloride 104 mEq/L (98-107); Glucose 138 mg/dL (70-105); Osmolality,Calculated 288 (280-300); Phosphorous 3.4 mg/dL (2.7-4.5); Potassium 3.6 mEq/L (3.5-5.1); Sodium 138 mEq/L (136-145); Total Protein 6.1 g/dL (6.4-8.9); eGFR For Non-African Americans > 60 (> 60)
[2018-04-25] MEDS: Pantoprazole 40 MG VIAL IVP SCH (08:54)
[2018-04-25] MEDS: Levofloxacin 750 MG/150 ML 750 MG/150 ML BAG IVPB SCH (08:55)
[2018-04-25] MEDS: Chloraseptic Spray 177 ML BOTTLE MM SCH ×4 (08:56→20:54)
[2018-04-25] MEDS ORDERED: OXYCODONE Oral CONC 10 MG/0.5 ML ORAL.SYG SL PRN (14:22)
--- NOTE | 2018-04-25 14:38 | General Surgery Progress Note ---
Date of Encounter: 04/25/18 Time of Encounter: 12:30 - Assessment and Plan (1) Acute perforated appendicitis Current Visit: Yes Status: Acute Continue with conservative measures as patient is improving Remove NG tube today Clear liquids with protein supplements (diabetic modifications) IV antibiotics- levaquin and flagyl Continue TPN for nutritional support Contiue Pigtail drain Ambulate hallways with assistance TID IS every 1 hour while awake Supportive care (2) Adynamic ileus Current Visit: Yes Status: Acute Resolving Reglan scheduled NG removal Clear liquids today with protein supplements (3) Intra-abdominal abscess Current Visit: Yes Status: Acute s/p IR drainage Continue pigtail drain IV antibiotics- levaquin and flagyl (4) T2DM (type 2 diabetes mellitus) Current Visit: Yes Status: Chronic Hyperglycemia improved Continue SSI and levemir Will continue to monitor and adjust as necessary Qualifiers: 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 status Diabetes mellitus complication status: with unspecified complications Qualified Code(s): E11.8 - Type 2 diabetes mellitus with unspecified complications Subjective Patient reports: no new complaints, feels better, voiding w/o difficulty, flatus , bowel movement, diarrhea, afebrile, other (Patient denies any pain and he states that he is hungry today) Objective Vital Signs - Last 8 Hours Temp Pulse Resp BP Pulse Ox 04/25/18 11:10 17 95 04/25/18 10:46 98 F 100 18 132/87 93 04/25/18 07:35 16 96 04/25/18 06:42 98.0 F 92 16 155/93 94 Intake and Output 04/24/18 04/25/18 04/25/18 23:59 07:59 15:59 Intake Total 2088 550 / 550 350 / 350 Output Total 1200 / 1200 150 / 150 460 / 460 Balance 889 / 889 400 / 400 -110 / -110 Intake: IV Fluids 2088 550 / 550 350 / 350 Clinimix E 5%-15% SOLUTION 2, 1539 / 1539 000 ML @ 83.3 mls/hr IVC .Q24H [facility] with M.v.i. Adult 10 ml Rx# :[id number] Ofirmev 1,000 mg/100 ml 1,000 200 / 200 200 / 200 100 / 100 mg In 100 ml @ 400 mls/hr IVPB Q6HR [facility] Rx#:[id number] Intralipid 20% 250 ML @ 21 mls/ 250 / 250 250 / 250 hr IVPB DAILY@1700 [facility] Rx#: [id number] Levaquin Premix 750mg/150 mL 150 / 150 750 mg In 150 ml @ 100 mls/hr IVPB DAILY [facility] Rx#:[id number] Flagyl Premix 500 MG/100 ML 500 100 / 100 100 / 100 100 / 100 mg In 100 ml @ 100 mls/hr IVPB Q8HR [facility] Rx#:[id number] Oral 0 / 0 0 / 0 Output: Urine 700 / 700 150 / 150 150 / 150 Gastric Drainage 500 / 500 300 / 300 Left Nare 50 / 50 Wound Drainage Right Lower Abdomen Other: Meal NPO for supper NPO Stool Size Small Stool Consistency loose Stool Color Brown # Bowel Movements 0 1 Blood Glucose* 246 192 171 - General physical appearance well developed, well nourished, no distress, no pain - Eyes normal ocular movement - ENT dry mucosa, atraumatic, normocephalic - Neck Neck exam: trachea midline - Respiratory normal respiratory effort, clear to auscultation - Cardiovascular Cardiovascular exam: Present: RRR - Abdomen Abdomen: Present: bowel sounds present, soft, non tender, wound (NG tube with minimal amount of bilious drainage noted; JIL drain to bulb suction with serous drainage noted (10ml)) - Neurologic CN 2-12 grossly intact - Psychiatric oriented to time, oriented to person, oriented to place, speech is normal, memory intact - Labs 04/23/18 06:24 04/25/18 04:35 Diabetes panel 04/25/18 Range/Units 04:35 Sodium 138 (136-145) mEq/L Potassium 3.6 (3.5-5.1) mEq/L Chloride 104 (98-107) mEq/L Carbon Dioxide 27 (23-29) mEq/L BUN 13 (6-20) mg/dL Creatinine 0.65 L (0.70-1.30) mg/dL Glucose 138 H (70-105) mg/dL Calcium 8.3 L (8.6-10.3) mg/dL AST 12 L (13-39) Units/L ALT 13 (7-52) Units/L Alkaline Phosphatase 89 (34-104) Units/L Albumin 3.1 L (3.5-5.7) g/dL Calcium panel 04/25/18 Range/Units 04:35 Calcium 8.3 L (8.6-10.3) mg/dL Phosphorus 3.4 (2.7-4.5) mg/dL Albumin 3.1 L (3.5-5.7) g/dL Pituitary panel 04/25/18 Range/Units 04:35 Sodium 138 (136-145) mEq/L Potassium 3.6 (3.5-5.1) mEq/L Chloride 104 (98-107) mEq/L Carbon Dioxide 27 (23-29) mEq/L BUN 13 (6-20) mg/dL Creatinine 0.65 L (0.70-1.30) mg/dL Glucose 138 H (70-105) mg/dL Calcium 8.3 L (8.6-10.3) mg/dL Adrenal panel 04/25/18 Range/Units 04:35 Sodium 138 (136-145) mEq/L Potassium 3.6 (3.5-5.1) mEq/L Chloride 104 (98-107) mEq/L Carbon Dioxide 27 (23-29) mEq/L BUN 13 (6-20) mg/dL Creatinine 0.65 L (0.70-1.30) mg/dL Glucose 138 H (70-105) mg/dL Calcium 8.3 L (8.6-10.3) mg/dL Total Bilirubin 0.3 (0.3-1.0) mg/dL AST 12 L (13-39) Units/L ALT 13 (7-52) Units/L Alkaline Phosphatase 89 (34-104) Units/L Albumin 3.1 L (3.5-5.7) g/dL Consult Discharge Plan - Plan Referrals: Julio César Mccarty MD [Primary Care Provider] - - Attending Attestation For this encounter, I have reviewed the GUEST SERVICES AMBASSADOR or PA documentation, treatment plan, and medical decision making; and I have had face to face time with this patient.
[2018-04-25] MEDS ORDERED: Clinimix E 5%-15% SOLUTION 2,000 ML with MVI, adult with vitamin K 10 ML, Insulin Hum... IVC SCH (17:00)
[2018-04-25] MEDS: Insulin DETEMIR 100 UNIT/ML X5UNITS SQ SCH (20:52)
[2018-04-26] MEDS: MetroNIDAZOLE 500 MG/100 ML 500 MG/100 ML BAG IVPB SCH ×3 (00:16→15:41)
[2018-04-26] MEDS: *HR* Metoprolol 5 MG/5 ML VIAL IVP SCH ×4 (00:17→17:51)
[2018-04-26] MEDS: Metoclopramide 10 MG/2 ML VIAL IVP SCH ×4 (00:17→17:51)
[2018-04-26] MEDS: Acetylcysteine 10% 2 ML INHSOL IH SCH ×4 (04:05→15:32)
[2018-04-26] MEDS: Ipratropium/Albuterol Neb 3 ML IH SCH ×6 (04:05→23:18)
[2018-04-26 05:04] LABS: BUN/Creatinine Ratio 21 (6-26); Blood Urea Nitrogen 12 mg/dL (6-20); Calcium 8.2 mg/dL (8.6-10.3); Carbon Dioxide 27 mEq/L (23-29); Chloride 104 mEq/L (98-107); Glucose 220 mg/dL (70-105); Magnesium 1.8 mg/dL (1.6-2.6); Osmolality,Calculated 291 (280-300); Phosphorous 3.1 mg/dL (2.7-4.5); Potassium 3.8 mEq/L (3.5-5.1); Sodium 137 mEq/L (136-145); Triglycerides 175 mg/dL (< 150); eGFR For Non-African Americans > 60 (> 60)
[2018-04-26] MEDS: Insulin LISPRO 300 UNITS/3 ML VIAL SQ SCH ×4 (08:28→21:44)
[2018-04-26] MEDS: Levofloxacin 750 MG/150 ML 750 MG/150 ML BAG IVPB SCH (11:05)
[2018-04-26] MEDS: Pantoprazole 40 MG VIAL IVP SCH (11:06)
[2018-04-26] MEDS: Chloraseptic Spray 177 ML BOTTLE MM SCH ×4 (11:07→21:45)
[2018-04-26] MEDS ORDERED: D10% in Water 500 ML IVC PRN (11:29)
--- NOTE | 2018-04-26 15:36 | General Surgery Progress Note ---
Date of Encounter: 04/26/18 Time of Encounter: 13:00 - Assessment and Plan (1) Acute perforated appendicitis Current Visit: Yes Status: Acute Continue with conservative measures as patient is improving Advance to soft diet today with protein supplements Wean TPN IV antibiotics- levaquin and flagyl Remove Pigtail drain Ambulate hallways with assistance TID IS every 1 hour while awake Supportive care (2) Adynamic ileus Current Visit: Yes Status: Resolved Resolving Reglan scheduled NG removal 04/25 Advance to soft diet today with protein supplements Wean TPN (3) Intra-abdominal abscess Current Visit: Yes Status: Acute s/p IR drainage Remove pigtail drain IV antibiotics- levaquin and flagyl (4) T2DM (type 2 diabetes mellitus) Current Visit: Yes Status: Chronic Hyperglycemia improved Continue SSI and levemir Will continue to monitor and adjust as necessary Qualifiers: Diabetes mellitus terminal supervisor insulin use: unspecified group home insulin use status Diabetes mellitus complication status: with unspecified complications Qualified Code(s): E11.8 - Type 2 diabetes mellitus with unspecified complications Subjective Patient reports: no new complaints, feels better, tolerating liquids well, voiding w/o difficulty, flatus, bowel movement (4-5 liquid bowel movements ), afebrile Objective Vital Signs - Last 8 Hours Temp Pulse Resp BP Pulse Ox 04/26/18 15:33 94 94 04/26/18 14:00 98.4 F 102 94 133/87 04/26/18 11:44 18 94 04/26/18 10:37 98.5 F 105 18 134/87 94 Intake and Output 04/25/18 04/26/18 04/26/18 23:59 07:59 15:59 Intake Total 1060 / 1060 350 / 350 Output Total 450 / 450 1200 / 1200 1200 / 1200 Balance 610 / 610 -1200 / -1200 -850 / -850 Intake: IV Fluids 100 / 100 350 / 350 Levaquin Premix 750mg/150 mL 150 / 150 750 mg In 150 ml @ 100 mls/hr IVPB DAILY [facility] Rx#:[id number] Flagyl Premix 500 MG/100 ML 500 100 / 100 200 / 200 mg In 100 ml @ 100 mls/hr IVPB Q8HR [facility] Rx#:[id number] Oral 960 / 960 Output: Urine 400 / 400 1200 / 1200 1200 / 1200 Gastric Drainage 50 / 50 Wound Drainage 0 / 0 Right Lower Abdomen 0 / 0 Other: Meal Dinner Stool Size Large Stool Consistency loose liquid Stool Color Brown # Bowel Movements 2 Weight 95.2 kg Blood Glucose* 223 195 245 Patient Weight 04/26/18 23:59 Weight 95.2 kg - General physical appearance well developed, no distress, no pain - Eyes normal ocular movement - ENT normal mucosa, atraumatic, normocephalic - Neck Neck exam: trachea midline - Respiratory normal respiratory effort, clear to auscultation - Cardiovascular Cardiovascular exam: Present: tachycardia - Abdomen Abdomen: Present: bowel sounds present, soft, non tender, wound (Pigtail drain with scant amount of serous drainage noted) - Neurologic CN 2-12 grossly intact - Musculoskeletal normal gait, normal posture - Psychiatric oriented to time, oriented to person, oriented to place, speech is normal, memory intact - Labs 04/23/18 06:24 04/26/18 04:00 Diabetes panel 04/26/18 Range/Units 04:00 Sodium 137 (136-145) mEq/L Potassium 3.8 (3.5-5.1) mEq/L Chloride 104 (98-107) mEq/L Carbon Dioxide 27 (23-29) mEq/L BUN 12 (6-20) mg/dL Creatinine 0.56 L (0.70-1.30) mg/dL Glucose 220 H (70-105) mg/dL Calcium 8.2 L (8.6-10.3) mg/dL Triglycerides 175 H (< 150) mg/dL Calcium panel 04/26/18 Range/Units 04:00 Calcium 8.2 L (8.6-10.3) mg/dL Phosphorus 3.1 (2.7-4.5) mg/dL Pituitary panel 04/26/18 Range/Units 04:00 Sodium 137 (136-145) mEq/L Potassium 3.8 (3.5-5.1) mEq/L Chloride 104 (98-107) mEq/L Carbon Dioxide 27 (23-29) mEq/L BUN 12 (6-20) mg/dL Creatinine 0.56 L (0.70-1.30) mg/dL Glucose 220 H (70-105) mg/dL Calcium 8.2 L (8.6-10.3) mg/dL Adrenal panel 04/26/18 Range/Units 04:00 Sodium 137 (136-145) mEq/L Potassium 3.8 (3.5-5.1) mEq/L Chloride 104 (98-107) mEq/L Carbon Dioxide 27 (23-29) mEq/L BUN 12 (6-20) mg/dL Creatinine 0.56 L (0.70-1.30) mg/dL Glucose 220 H (70-105) mg/dL Calcium 8.2 L (8.6-10.3) mg/dL Consult Discharge Plan - Plan Referrals: Julio César Mccarty MD [Primary Care Provider] -
[2018-04-26] MEDS ORDERED: Clinimix E 5%-15% SOLUTION 2,000 ML with MVI, adult with vitamin K 10 ML, Insulin Hum... IVC SCH (17:00)
[2018-04-26] MEDS: *HR* Glimepiride 4 MG TABLET PO SCH (21:45)
[2018-04-27] MEDS: *HR* Metoprolol 5 MG/5 ML VIAL IVP SCH ×3 (01:32→11:50)
[2018-04-27] MEDS: MetroNIDAZOLE 500 MG/100 ML 500 MG/100 ML BAG IVPB SCH ×2 (01:32→08:55)
[2018-04-27] MEDS: Metoclopramide 10 MG/2 ML VIAL IVP SCH ×3 (01:33→11:50)
[2018-04-27] MEDS: Ipratropium/Albuterol Neb 3 ML IH SCH ×3 (03:58→11:46)
[2018-04-27] MEDS: Pantoprazole 40 MG VIAL IVP SCH (08:52)
[2018-04-27] MEDS: *HR* Glimepiride 4 MG TABLET PO SCH (08:52)
[2018-04-27] MEDS: Insulin LISPRO 300 UNITS/3 ML VIAL SQ SCH ×2 (08:55→12:18)
[2018-04-27] MEDS ORDERED: *HR* Pioglitazone 30 MG TABLET PO SCH (09:00)
[2018-04-27] MEDS: Levofloxacin 750 MG/150 ML 750 MG/150 ML BAG IVPB SCH (09:01)
[2018-04-27] MEDS: Chloraseptic Spray 177 ML BOTTLE MM SCH ×2 (09:02→11:50)
[2018-04-27] MEDS: Lisinopril 20 MG TABLET PO SCH (09:09)
--- NOTE | 2018-04-27 10:05 | Discharge Summary ---
Orders not resulted at time of discharge: Pending orders 04/22/18 09:22 AFB Culture, Body Fluid [TB] Routine AFB Smear [TB] Routine Culture,Anaerobic [RM] Routine 04/27/18 04:00 Basic Metabolic Panel AM 0400 Magnesium AM 0400 Phosphorous AM 0400 Date of Encounter: 04/27/18 Time of Encounter: 09:50 - Discharge Diagnosis (1) Acute perforated appendicitis Priority: Primary Status: Acute (2) Adynamic ileus Priority: Secondary Status: Resolved (3) Intra-abdominal abscess Priority: Secondary Status: Acute (4) T2DM (type 2 diabetes mellitus) Priority: Secondary Status: Chronic Qualifiers: Diabetes mellitus mcfp insulin use: unspecified mcfp insulin use status Diabetes mellitus complication status: with unspecified complications Qualified Code(s): E11.8 - Type 2 diabetes mellitus with unspecified complications General Surgery Exam Initial Vital Signs Temp Pulse Resp BP Pulse Ox 98.3 F 87 14 116/82 99 04/15/18 20:17 04/15/18 20:17 04/15/18 20:17 04/15/18 20:17 04/15/18 20:17 - General physical appearance well developed, well nourished, no distress - Eyes normal ocular movement - ENT normal mucosa, atraumatic, normocephalic - Neck trachea midline - Respiratory normal respiratory effort, clear to auscultation - Cardiovascular Cardiovascular exam: Present: tachycardia (HR 101) - Abdomen Abdomen general surgery: Present: bowel sounds present, soft, tender (around drain tube site only), wound (Pigtail drain with purulent drainage noted this morning) - Integumentary Integumentary general surgery: Present: warm and dry - Neurologic Present: CN 2-12 grossly intact - Psychiatric Psychiatric general surgery: Present: A&Ox3 - Hospital Course Hospital course: Mr. Marsh is a 47 year old male who presented to the hospital with acute onset of abdominal pain. The patient was found to have a perforated appendicitis. He was admitted to the hospital for conservative management with bowel rest, IV fluids, IV antibiotics, supportive care. The patient's hospital course was complicated by an ileus and development of intra-abdominal abscess. The patient was treated with conservative measures for ileus and did have an NG tube placed to low intermittent wall suction. He was started on TPN therapy for nutritional support during this time period. His intra-abdominal abscess was drained per interventional radiology. The patient's ileus has progressively improved and his NG tube was removed. He is currently tolerating a soft diet without nausea or vomiting. His vital signs are stable and he is afebrile. His abdominal pain is completely resolved aside from mild pain around his drain tube site. He is ambulating and voiding without difficulty. We will transition the patient to oral antibiotics today and begin discharge planning to home with home health care. He will be discharged home with his drain in place and will have a quick follow-up early next week for a drain check. The plan of care has been reviewed with the patient and his family and they verbalized understanding. We will recheck to home health care to increase his nursing visits to daily prior to discharge. - Time Spent with Patient Total time spent providing and/or coordinating discharge services: Greater than 30 minutes - Discharge Medications Prescriptions: Ibuprofen [Ibu] 800 mg PO TID #40 tablet levoFLOXacin [Levaquin] 500 mg PO DAILY #10 tablet metroNIDAZOLE [Flagyl] 500 mg PO TID #30 tablet Home Medications: Cholecalciferol (Vitamin D3) [Vitamin D3] 50,000 unit PO QWEEK 04/16/18 [History ] Exenatide Microspheres [Bydureon Pen] 2 mg SQ QWEEK 04/16/18 [History] Glimepiride [Amaryl] 4 mg PO BID 04/16/18 [History] Lisinopril [Zestril] 20 mg PO DAILY 04/16/18 [History] Pioglitazone HCl [Actos] 30 mg PO DAILY 04/16/18 [History] Ibuprofen [Ibu] 800 mg PO TID #40 tablet 04/27/18 [Rx] levoFLOXacin [Levaquin] 500 mg PO DAILY #10 tablet 04/27/18 [Rx] metroNIDAZOLE [Flagyl] 500 mg PO TID #30 tablet 04/27/18 [Rx] Allergies/Adverse Reactions: 3 Allergy/AdvReac Type Severity Reaction Status Date / Time No Known Allergies Allergy Verified 04/16/18 10:04 Date of admission: 04/16/18 13:03 Primary care physician: Julio César Mccarty MD Consults: 04/19/18 07:51 Consult to Respiratory Therapy [CONS] Routine Reason for Consult: aggressive pulm toileting and duoneb therapy; decreased/ tight breath sounds. Pt is with developmental delay and long time smoking history. Time Notified: 07:53 Call Completed: No 04/19/18 10:11 Consult to Invasive Line Access Team [CONS] Routine Reason for Consult: Picc Line Insertion Line Type: PICC PICC line indications: Parental nutrition Consult to Nutrition [CONS] Routine Comment: Consulting Provider: NUTRITION Reason for Dietary Consult: TPN Start and Manage 04/21/18 08:37 Consult to Interventional Radiology [CONS] Stat Consulting Provider: Radiology Interventional Cols Reason for Consult: post- appendectomy 5 cm abcess right flank with ileus Time Notified: 08:40 Call Completed: Yes Discharging clinician: Elenita Sung Anticipated date of discharge: 04/27/18 Labs on day of discharge: Labs from last 24 hours 04/27/18 04/26/18 04/26/18 08:50 17:11 10:37 POC Glucose 130 H 252 H 245 H Preliminary micro results at discharge 04/22/18 09:22 Anaerobic Culture - Preliminary Abdomen At this time, no anaerobic growth is present. The culture will be finalized after 5 days of incubation. - Impressions ITS Impressions Chest/Abdomen X-ray 04/18/18 12:27 IMPRESSION: 1. High-grade distal small bowel obstruction. 2. Bibasilar atelectasis and/or pneumonia. D/ / Jaguar Reyna MD / Jaguar Reyna MD Interpreting Provider: Jaguar Reyna MD X-Ray 04/19/18 07:47 IMPRESSION: Gastric drain side hole projects over the distal esophagus. Advancement is recommended. Persistent small bowel dilation. Right basilar atelectasis/pneumonia and possible pleural effusion. D/ / Wm Cuevas MD / Wm Cuevas MD Interpreting Provider: Wm Cuevas MD X-Ray 04/19/18 08:55 IMPRESSION: 1. Enteric tube tip and side port within the stomach. 2. Air-filled dilated loops of small bowel which either reflects small-bowel obstruction or ileus. D/ / 04/19/2018 10:00:27 Edilia Sanchez MD / Stacey Mcghee Interpreting Provider: Edilia Sanchez MD Abdomen X-Ray 04/20/18 07:00 IMPRESSION: Imaging features favor small bowel obstruction. D/ / Wm Mark / Wm Mark Interpreting Provider: Wm Mark Abdomen/Pelvis CT 04/20/18 16:20 IMPRESSION: Acute appendicitis. There is a fluid collection anterior to the cecum concerning for abscess, new from the previous exam. In addition, there is a tiny bubble of free intraperitoneal air as seen on the previous study. Dilated proximal small bowel loops likely due to a reactive ileus. Colonic diverticulosis. There is a small amount of ascites, likely reactive in nature. Small bilateral pleural effusions are identified with bibasilar atelectasis. NG tube noted. D/ / Thong Martell MD / Thong Martell MD Interpreting Provider: Thong Martell MD Abscess Drainage CT 04/22/18 00:00 IMPRESSION: CT guided drainage of right lower quadrant abscess as discussed above. D/ / 04/24/2018 15:04:32 Rosy Hernandez MD / wang Interpreting Provider: Rosy Hernandez MD X-Ray 04/22/18 10:51 IMPRESSION: Slight decrease in small bowel dilatation. D/ / Chaparrita Malave MD / Chaparrita Malave MD Interpreting Provider: Chaparrita Malave MD Chest X-Ray 04/22/18 13:38 IMPRESSION: NG tube with tip at the level of the shilpi. Small right pleural effusion right basilar opacity, new. Findings may be related to edema and atelectasis or infection. Mildly dilated loops of small bowel measuring up to 4.2 cm. D/ / Chaparrita Malave MD / Chaparrita Malave MD Interpreting Provider: Chaparrita Malave MD X-Ray 04/22/18 15:49 IMPRESSION: 1. Limited KUB excluding the pelvis. 2. NG tube extends below the left hemidiaphragm, into the upper abdomen, tip overlying the expected level of the stomach, left upper quadrant. 3. Nonspecific small bowel distention disproportion to the colon concerning for obstruction of severe adynamic ileus is a consideration as well. D/ / Enzo Wilson / Enzo Wilson Interpreting Provider: Enzo Wilson X-Ray 04/23/18 07:49 IMPRESSION: 1. Tip of the nasogastric tube is within the proximal stomach, just distal to the gastroesophageal junction. Recommend advancement by 8-10 cm, and repeat abdominal radiograph. 2. Dilated bowel loops are again noted. D/ / 04/23/2018 09:26:03 Shalom Sanchez MD / Stacey Mcghee Interpreting Provider: Shalom Sanchez MD Small Bowel X-Ray 04/23/18 09:55 IMPRESSION: No evidence of bowel obstruction. D/ / 04/23/2018 17:32:53 Shalom Sanchez MD / ayaz Interpreting Provider: Shalom Sanchez MD - Patient Status Disposition: Home Health Service Condition: Good Functional capacity at discharge: independent ambulation Overall status at discharge: patient is progressing back to baseline - Discharge Instructions Follow Up With: Julio César Mccarty MD [Primary Care Provider] - Pradip Sung DO [Partnered Physician] - 05/01/18 10:50 am (hospital follow-up ) Additional Instructions: General Surgical Discharge Instructions 1. No pushing, pulling, or lifting greater than 15 lbs for 2 weeks 2. You may shower, but no tub baths, soaking, or swimming for 2 weeks. 4. Take ibuprofen every 8 hours for discomfort. May alternate with Tylenol 1Gm every 6 hours 6. Report any fevers greater than 100.5F, increase abdominal discomfort, increased redness or pain at the surgical site, or any vomiting. 7. Report any pain in the calves, shortness of breath, or rapid heartbeat. 8. Follow-up in the office as directed. 9. If you were prescribed antibiotics, do not stop them without talking to your provider. 10. Follow a low residue diet until directed otherwise. Drain care- cleanse around drain was soap and water and the shower daily, pat dry. Apply split 4 x 4 gauze and tape to secure daily. Empty drain 1-2 times daily and record outputs on drain record. Bring records to follow-up appointment on 05/01/[address] Sung. - Diet and Activity Activity: increase activity as tolerated Diet: advance to your usual diet - Attending Attestation For this encounter, I have reviewed the PHYSICS TECHNICAL OFFICER or PA documentation, treatment plan, and medical decision making; and I have had face to face time with this patient.
[2018-04-27 10:08] VITALS: BP 116/77
--- NOTE | 2018-04-27 11:12 | Physician Discharge Referral ---
Home Health/Hosp Referral Info Transfer to: Home Health Attending Provider: Dr. Matthew Sung Provider in Charge Post Discharge: Other (Dr. Matthew Sung) - Diagnosis (1) Acute perforated appendicitis Priority: Primary Status: Acute (2) Adynamic ileus Priority: Secondary Status: Resolved (3) Intra-abdominal abscess Priority: Secondary Status: Acute (4) T2DM (type 2 diabetes mellitus) Priority: Secondary Status: Chronic - Respiratory Orders None - Dressing/Wound Care Site: RLQ drain Type of Dressing/Treatments w/Frequency: Drain care- cleanse around drain was soap and water and the shower daily, pat dry. Apply split 4 x 4 gauze and tape to secure daily. Empty drain 1-2 times daily and record outputs on drain record. Bring records to follow-up appointment on 05/01/[address] Sung. - Diet/Nutrition Diet/Nutrition Orders: Regular - Activity Activity Orders: Up ad alfredo - Services Needed Following services are medically necessary services: Intermediate Care Orders: General Surgical Discharge Instructions 1. No pushing, pulling, or lifting greater than 15 lbs for 2 weeks 2. You may shower, but no tub baths, soaking, or swimming for 2 weeks. 4. Take ibuprofen every 8 hours for discomfort. May alternate with Tylenol 1Gm every 6 hours 6. Report any fevers greater than 100.5F, increase abdominal discomfort, increased redness or pain at the surgical site, or any vomiting. 7. Report any pain in the calves, shortness of breath, or rapid heartbeat. 8. Follow-up in the office as directed. 9. If you were prescribed antibiotics, do not stop them without talking to your provider. 10. Follow a low residue diet until directed otherwise. Drain care- cleanse around drain was soap and water and the shower daily, pat dry. Apply split 4 x 4 gauze and tape to secure daily. Empty drain 1-2 times daily and record outputs on drain record. Bring records to follow-up appointment on 05/01/[address] Sung. - Transfer Medications Prescriptions: Ibuprofen [Ibu] 800 mg PO TID #40 tablet levoFLOXacin [Levaquin] 500 mg PO DAILY #10 tablet metroNIDAZOLE [Flagyl] 500 mg PO TID #30 tablet Home Medications: Cholecalciferol (Vitamin D3) [Vitamin D3] 50,000 unit PO QWEEK 04/16/18 [History ] Exenatide Microspheres [Bydureon Pen] 2 mg SQ QWEEK 04/16/18 [History] Glimepiride [Amaryl] 4 mg PO BID 04/16/18 [History] Lisinopril [Zestril] 20 mg PO DAILY 04/16/18 [History] Pioglitazone HCl [Actos] 30 mg PO DAILY 04/16/18 [History] Ibuprofen [Ibu] 800 mg PO TID #40 tablet 04/27/18 [Rx] levoFLOXacin [Levaquin] 500 mg PO DAILY #10 tablet 04/27/18 [Rx] metroNIDAZOLE [Flagyl] 500 mg PO TID #30 tablet 04/27/18 [Rx] Allergies/Adverse Reactions: 3 Allergy/AdvReac Type Severity Reaction Status Date / Time No Known Allergies Allergy Verified 04/16/18 10:04 Certification: Further, I certify that my clinical findings support that this patient is homebound (i.e. absences from home require considerable and taxing effort and are for medical reasons or holiness services or infrequently or short duration when for other reasons) because: Homebound Reason: Patient requires assistance of a person or device to safely leave home, Post-surgery restriction and or conditions limit ability to leave home, Leaving home requires considerable and taxing effort due to condition Attestation: My signature below is to certify that this patient is under my care and that I, or nurse practitioner, or a physician's loan officer assistant working with me, has a face-to -face encounter with this patient.
== END 2018-04-27 13:39 | disposition home health service (06) | DRG 372 ==
LOC: 3ANU 20:12 → EMEROOARM 20:12 → 3ANU 04-16 00:52
PROVIDERS: ADMIT Surgery; ATTEND Surgery
PROC: IRDRAIN (2018-04-22 09:00)

== ENCOUNTER 2018-06-06 07:10 | Inpatient (IN) ==
[2018-06-06] MEDS ORDERED: Ringers Solution, Lactated 1,000 ML IVC SCH (08:00)
[2018-06-06] MEDS ORDERED: Famotidine 20 MG/2 ML VIAL IVP ONE (08:03)
[2018-06-06] MEDS ORDERED: Acetaminophen IV 1,000 MG/100 ML INFUS..BTL IVPB ONE (08:03)
[2018-06-06] MEDS ORDERED: Celecoxib 100 MG CAPSULE PO ONE (08:04)
[2018-06-06] MEDS ORDERED: cefOXitin 2,000 MG in Water for inj. (sterile) 20 ML 20 ML IVP ONE (08:14)
--- NOTE | 2018-06-06 08:33 | Anesthesia Evaluation PreOp ---
Date of Encounter: 06/06/18 Time of Encounter: 08:30 - Past History Planned Operation: Lap Appendectomy Cardiac History: HTN Pulmonary History: Denies Any Significant HX RN NEW GRADUATE History: Seizures Other Medical History: Diabetes Type II, Other (MRDD) Anesthesia History: No Prior Anesthetic Complications Alcohol Use: none Drug use: none Medications and Allergies Cholecalciferol (Vitamin D3) [Vitamin D3] 50,000 unit PO QWEEK 04/16/18 [History ] Exenatide Microspheres [Bydureon Pen] 2 mg SQ QWEEK 04/16/18 [History] Glimepiride [Amaryl] 4 mg PO BID 04/16/18 [History] Lisinopril [Zestril] 20 mg PO DAILY 04/16/18 [History] Pioglitazone HCl [Actos] 30 mg PO DAILY 04/16/18 [History] Ibuprofen [Ibu] 800 mg PO TID #40 tablet 04/27/18 [Rx] levoFLOXacin [Levaquin] 500 mg PO DAILY #10 tablet 04/27/18 [Rx] metroNIDAZOLE [Flagyl] 500 mg PO TID #30 tablet 04/27/18 [Rx] 3 Allergy/AdvReac Type Severity Reaction Status Date / Time No Known Allergies Allergy Verified 05/23/18 08:38 - Meds/Allergy Pre-op Review Medications Reviewed: Yes Allergies Reviewed: Yes Beta Blockers on Current Med List: No Anesthesia Results - Labs Laboratory Tests 05/23/18 05/23/18 08:55 08:55 Hgb 14.8 Hct 44.8 Plt Count 194 Sodium 138 Potassium 4.9 BUN 11 Creatinine 0.93 - Imaging EKG: report reviewed (SR) Anesthesia Exam O2 Sat Height 1.75 m Height 1.75 m Height 1.75 m Weight 89.811 kg Weight 89.811 kg Weight 89.811 kg O2 Sat by Pulse Oximetry 99 O2 Sat by Pulse Oximetry 99 Vital Signs Temp Pulse Resp BP Pulse Ox 97.7 F 91 18 124/85 99 06/06/18 07:30 06/06/18 07:30 06/06/18 07:30 06/06/18 07:30 06/06/18 07:30 Height: 5'9 Weight: 198 lbs NPO (# of Hours): MN Pain Scale: 0 - HEENT Pupil (Motor): Pupils equal, EOMI Mallampati: III Teeth: Edentulous Oral Opening: Less than or equal to 3 - RN NEW GRADUATE LOC: Oriented RN NEW GRADUATE Motor: Normal RUE, Normal LUE, Normal RLE, Normal LLE, Normal Face RN NEW GRADUATE Sensory: Normal: RUE, LUE, RLE, LLE, Face - Cardiac Rhythm: Regular Murmur: None JVD: No Carotid Bruit: No - Pulmonary Breath Sounds: bilateral Clear Respiratory Effort: Symmetrical Anesthesia Assess/Plan ASA Score: 3 (HTN DM MRDD) Modified Ronald Scale for Level of Consciousness: Cooperative, oriented, and tranquil Anesthetic Plan: General Monitoring Plan: Standard Monitors Recovery Plan: PACU (Discussed GA, agrees to proceed)
[2018-06-06] MEDS ORDERED: *HR* FentaNYL (PF) 100 MCG/2 ML VIAL ONE ×2 (08:53→09:48)
[2018-06-06] MEDS ORDERED: *HR* Propofol 200 MG/20 ML VIAL IVP ONE (08:53)
--- NOTE | 2018-06-06 09:07 | History & Physical Report ---
Date of Encounter: 06/06/18 Time of Encounter: 09:07 24 Hour HP Update - Instructions Instructions: If the History and Physical is less than 30 days old and was completed prior to A.M. admission and or procedure and has NOT been updated on calendar day of procedure please complete this update prior to performing procedure. - Update Patient reports changes in Medical Condition: No Changes in examination, assessment, or condition: No Changes in Medication: No Preop tests/diagnostics Reviewed: Yes Surgery Remains Indicated: Yes Consent for Planned Operative Procedure(s) Verified: Yes - Pre-Operative Checklist Preoperative Checklist Indicated: Yes Prophylactic Antibiotic Ordered: Yes Home Medications Include Beta Joselito: No
[2018-06-06] MEDS ORDERED: Dexamethasone 4 MG/ML VIAL ONE (09:26)
[2018-06-06] MEDS ORDERED: Ondansetron 4 MG/2 ML VIAL ONE (09:26)
[2018-06-06] MEDS ORDERED: *HR* HYDROmorphone (PF) 1 MG/ML SYRINGE IVP PRN (09:38)
[2018-06-06] MEDS ORDERED: *HR* HYDROmorphone 2 MG TABLET PO PRN (09:38)
[2018-06-06] MEDS ORDERED: *HR* Promethazine 25 MG/ML VIAL IVP PRN (09:38)
[2018-06-06] MEDS ORDERED: *HR* OxyCODONE Immed Rel 5 MG TABLET PO PRN (09:38)
[2018-06-06] MEDS ORDERED: *HR* Labetalol 20 MG/4 ML SYRINGE IVP PRN (09:38)
[2018-06-06] MEDS ORDERED: Albuterol 2.5 MG/3 ML NEBULIZER IH ONE (09:38)
[2018-06-06] MEDS ORDERED: *HR* PHENYLEPHRINE 1,000 MCG/10 ML SYRINGE IVP ONE (09:42)
[2018-06-06] MEDS ORDERED: Ketorolac 30 MG/ML VIAL ONE (09:42)
[2018-06-06] MEDS ORDERED: Neostigmine Methylsulfate 3 MG/3 ML SYRINGE ONE (09:45)
--- NOTE | 2018-06-06 10:48 | Anesthesia Evaluation Post Op ---
Date of Encounter: 06/06/18 Time of Encounter: 11:00 - Vital Signs Vital Signs: Vital Signs/O2 Sat/Glucose, Most Current Temp Pulse Resp BP Pulse Ox 06/06/18 10:38 54 17 101/66 97 06/06/18 10:28 51 16 109/72 100 06/06/18 10:18 97.7 F 60 17 99/72 99 06/06/18 08:21 97.7 F 91 18 124/85 99 06/06/18 07:30 97.7 F 91 18 124/85 99 - Lungs Lungs: Clear Ascult./Percussion - Airway Airway: Non-obstructed - Cardiovascular Regular Rate - Pain Pain Scale: 1 - Nausea Vomiting Nausea Vomiting: Not Present - Hydration Hydration: Ice chips - Discharge PostOp Status: Transfer Patient to floor
[2018-06-06] MEDS ORDERED: MORPHINE SUL Oral CONC 10 MG/0.5 ML ORAL.SYG PO PRN (12:09)
[2018-06-06] MEDS ORDERED: Acetaminophen 325 MG TABLET PO PRN (12:09)
[2018-06-06] MEDS ORDERED: Ondansetron 4 MG/2 ML VIAL IVP PRN (12:09)
[2018-06-06] MEDS ORDERED: OXYCODONE Oral CONC 10 MG/0.5 ML ORAL.SYG SL PRN (12:09)
[2018-06-06] MEDS ORDERED: D5% in Water 1,000 ML IVC PRN (12:09)
[2018-06-06] MEDS ORDERED: Naloxone 0.4 MG/ML INJ IVP PRN (12:09)
[2018-06-06] MEDS ORDERED: Dextrose Gel 15 GM/37.5 ML TUBE PO PRN ×2 (12:09)
[2018-06-06] MEDS ORDERED: *HR* Dextrose 50 % in Water (Syg) 50 ML SYRINGE IVP PRN (12:09)
[2018-06-06] MEDS: Ketorolac 15 MG/ML VIAL IVP SCH ×2 (12:48→16:40)
[2018-06-06] MEDS: 0.9 % Sodium Chloride 1,000 ML IVC SCH (12:48)
[2018-06-06] MEDS: *HR* Glimepiride 4 MG TABLET PO SCH (16:40)
[2018-06-06] MEDS: Insulin LISPRO 300 UNITS/3 ML VIAL SQ SCH ×2 (18:12→20:54)
[2018-06-07] MEDS: 0.9 % Sodium Chloride 1,000 ML IVC SCH
[2018-06-07 11:41] LABS: Basophils % 0.3 %; Eosinophils % 0.3 %; Hemoglobin 12.7 g/dL (12.9-16.9); Immature Granulocytes % 0.8 % (0-4); Immature Platelets 2.5 % (1.1-6.1); Lymphocytes # 0.9 K/mcL (0.6-4.6); Mean Corpuscular HGB Conc 33.4 g/dL (31.6-35.5); Mean Corpuscular Hemoglobin 29.1 pg (28.0-33.3); Mean Platelet Volume 10.1 fL (9.4-12.4); Monocytes # 1.1 K/mcL (0.0-1.3); Monocytes % 11.4 %; Neutrophils # 7.8 K/mcL (1.6-8.9); Platelet Count 261 K/mcL (140-400); Red Blood Count 4.37 M/mcL (4.19-5.50); Red Cell Distribution Width 13.3 % (11.5-14.5); Segmented Neutrophils % 78.2 %
[2018-06-07 11:47] LABS: BUN/Creatinine Ratio 16 (6-26); Blood Urea Nitrogen 14 mg/dL (6-20); Calcium 8.6 mg/dL (8.6-10.3); Carbon Dioxide 25 mEq/L (23-29); Chloride 105 mEq/L (98-107); Glucose 172 mg/dL (70-105); Osmolality,Calculated 287 (280-300); Potassium 4.3 mEq/L (3.5-5.1); Sodium 136 mEq/L (136-145); eGFR For Non-African Americans > 60 (> 60)
[2018-06-07] MEDS: Insulin LISPRO 300 UNITS/3 ML VIAL SQ SCH ×4 (11:56→21:11)
[2018-06-07] MEDS: Ketorolac 15 MG/ML VIAL IVP SCH ×5 (12:02→23:56)
[2018-06-07] MEDS: *HR* Glimepiride 4 MG TABLET PO SCH ×2 (12:02→17:44)
[2018-06-07] MEDS: *HR* Pioglitazone 30 MG TABLET PO SCH (12:02)
[2018-06-07] MEDS: Lisinopril 20 MG TABLET PO SCH (12:03)
[2018-06-07] MEDS ORDERED: OXYCODONE Oral CONC 10 MG/0.5 ML ORAL.SYG SL PRN (12:15)
[2018-06-07] MEDS ORDERED: *HR* OxyCODONE/APAP 5/325 TABLET PO PRN (12:15)
[2018-06-07] MEDS ORDERED: 0.9 % Sodium Chloride 1,000 ML IVC SCH (12:17)
[2018-06-07] MEDS: *HR* Heparin 5,000 UNIT/ML VIAL SQ SCH ×2 (14:10→17:44)
[2018-06-08] MEDS: *HR* Heparin 5,000 UNIT/ML VIAL SQ SCH ×2 (05:19→18:17)
[2018-06-08 05:37] LABS: Basophils % 0.4 %; Eosinophils # 0.1 K/mcL (0.0-0.6); Eosinophils % 1.7 %; Hematocrit 35.9 % (37.5-50.1); Hemoglobin 11.9 g/dL (12.9-16.9); Immature Granulocytes % 0.6 % (0-4); Lymphocytes # 0.8 K/mcL (0.6-4.6); Lymphocytes % 8.9 %; Mean Corpuscular HGB Conc 33.1 g/dL (31.6-35.5); Mean Corpuscular Hemoglobin 28.9 pg (28.0-33.3); Mean Corpuscular Volume 87.1 fL (83.0-100.0); Mean Platelet Volume 9.8 fL (9.4-12.4); Monocytes % 11.8 %; Neutrophils # 6.4 K/mcL (1.6-8.9); Platelet Count 222 K/mcL (140-400); Red Blood Count 4.12 M/mcL (4.19-5.50); Red Cell Distribution Width 13.3 % (11.5-14.5); Segmented Neutrophils % 76.6 %
[2018-06-08 05:55] LABS: BUN/Creatinine Ratio 14 (6-26); Blood Urea Nitrogen 10 mg/dL (6-20); Calcium 8.5 mg/dL (8.6-10.3); Carbon Dioxide 27 mEq/L (23-29); Chloride 106 mEq/L (98-107); Glucose 97 mg/dL (70-105); Osmolality,Calculated 283 (280-300); Potassium 3.6 mEq/L (3.5-5.1); Sodium 137 mEq/L (136-145); eGFR For Non-African Americans > 60 (> 60)
[2018-06-08] MEDS: Ketorolac 15 MG/ML VIAL IVP SCH ×2 (06:04→12:11)
--- NOTE | 2018-06-08 08:01 | Operative Note ---
Date of procedure: 06/06/18 Pre-op diagnosis: Appendicitis Post-op diagnosis: same Procedure: Diagnostic Laparoscopy Exploratory Laparotomy Ileocectomy Anesthesia: DANISHA Surgeon: Pradip Sung Was there an physician assistant primary care present: Yes Television News Video Editor: Ivania Martin Estimated blood loss (cc): 5 Specimen: Ileum and cecum appendix Condition: stable Disposition: same day Procedure in Detail: After informed consent, the patient was taken the operating room placed in the supine position. After adequate sedation and anesthesia the abdomen was prepped and draped. A 12 mm cannulas placed leveling the umbilicus. Additional 5 mm cannulas were placed in the suprapubic and left lower quadrant. Pneumoperitoneum was created. Once cameras inserted I was able to do surveillance of the abdomen. There are multiple adhesions from his previous appendicitis. The appendix was identified and dissected free. The base of the cecum base of the appendix and the terminal ileum all had significant amounts of induration still resided. There is concern that there may have been a mass at the base of the cecum. A decision was made to perform a dissection and free the right colon as well as the terminal ileum. A GUERA 75 mm stapler was then used to transect the colon and the terminal ileum. Same stapling device was used to perform a [id number] functional end-to-end anastomosis. A TX 60 stapler was used to close common enterotomy. 3-0 silk suture was used to oversew the anastomosis. The anastomosis was then placed back within the abdomen. A primary herniorrhaphy was then performed. Skin was closed with suhail. He was taken the recovery room in stable condition. All instrument counts and needle counts were correct at the end the case.
[2018-06-08] MEDS: Insulin LISPRO 300 UNITS/3 ML VIAL SQ SCH ×4 (08:57→20:49)
[2018-06-08] MEDS: *HR* Pioglitazone 30 MG TABLET PO SCH (09:00)
[2018-06-08] MEDS: Lisinopril 20 MG TABLET PO SCH (09:00)
[2018-06-08] MEDS: *HR* Glimepiride 4 MG TABLET PO SCH ×2 (09:00→18:17)
--- NOTE | 2018-06-08 13:29 | Discharge Summary ---
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 Diabetes mellitus complication status: with unspecified complications Qualified Code(s): E11.8 - Type 2 diabetes mellitus with unspecified complications (3) HTN, goal below 130/80 Priority: Secondary Status: Chronic General Surgery Exam Initial Vital Signs Temp Pulse Resp BP Pulse Ox 97.7 F 91 18 124/85 99 06/06/18 07:30 06/06/18 07:30 06/06/18 07:30 06/06/18 07:30 06/06/18 07:30 Vital Signs Temp Pulse Resp BP Pulse Ox 06/09/18 10:24 97.6 F 91 16 118/76 94 06/09/18 06:44 98.7 F 92 16 120/82 94 06/09/18 03:27 98.6 F 90 16 115/74 93 06/08/18 21:02 94 06/08/18 18:45 99.0 F 100 16 124/77 94 06/08/18 14:17 97.8 F 106 16 108/74 97 Intake and Output 06/08/18 06/09/18 06/09/18 23:59 07:59 15:59 Intake Total 240 / 240 Output Total 300 / 300 650 / 650 300 / 300 Balance -300 / -300 -650 / -650 -60 / -60 Intake: Oral 240 / 240 Output: Urine 300 / 300 650 / 650 300 / 300 Other: Meal Breakfast Percent of Meal Consumed 25% Weight 76 kg Blood Glucose* 163 104 Patient Weight 06/09/18 23:59 Weight 76 kg VITAL SIGNS: Reviewed. See [facility] GENERAL: In no apparent distress. Sitting upright in chair at bedside HEENT: Normocephalic, atraumatic, pupils are equal and reactive, extraocular motions intact, oropharynx is pink and moist, there is no neck adenopathy or JVD noted. CHEST/RESPIRATORY: The thorax is free from signs of trauma. Lung sounds: clear to auscultation, normal respiratory effort CARDIAC: Regular rate and rhythm. Normal S1 and S2, without murmurs, gallops, or rubs. VASCULAR: No Edema. 2+ peripheral pulses. ABDOMEN: soft, expected postoperative tenderness, active bowel sounds INCISION: Surgical incision is clean, dry, and intact. There are no signs of cellulitis or infection noted. MUSCULOSKELETAL: Good range of motion of all major joints. Extremities without clubbing, cyanosis or edema. NEUROLOGIC EXAM: Alert and oriented x 3. Speech normal. Follows commands. PSYCHIATRIC: Mood normal. SKIN: No rash or lesions. - Hospital Course Hospital course: Mr. Marsh is a 48 year old male who presented for elective laparoscopic appendectomy on 06/06/2018 following a history of perforated appendicitis. On 06/07/2018 he underwent a diagnostic laparoscopy converted to exploratory laparotomy, ileocectomy, and umbilical herniorrhaphy with Dr. Sung. His hospital course was unremarkable although he was treated cautiously given his history of abdominal abscess. He is ambulating and voiding without difficulty, passing flatus, vital signs stable, abdominal discomfort controlled, tolerating a diet without nausea or vomiting. We will begin discharge planning to home with a follow-up in the office in approximately 2 weeks. - Time Spent with Patient Total time spent providing and/or coordinating discharge services: - Discharge Medications Prescriptions: OxyCODONE/APAP 5/325 [Percocet 5/325 MG] 1 each PO Q6HR PRN 7 Days #28 tablet PRN Reason: Mild Pain Docusate Sodium [Colace] 100 mg PO BID PRN #30 capsule PRN Reason: Constipation Polyethylene Glycol 3350 [MiraLAX] 17 gm PO DAILY 30 Days #30 powd.pack Home Medications: Cholecalciferol (Vitamin D3) [Vitamin D3] 50,000 unit PO WE 04/16/18 [History] Exenatide Microspheres [Bydureon Pen] 2 mg SQ WE 04/16/18 [History] Glimepiride [Amaryl] 4 mg PO BID 04/16/18 [History] Lisinopril [Zestril] 20 mg PO DAILY 04/16/18 [History] Pioglitazone HCl [Actos] 30 mg PO DAILY 04/16/18 [History] Docusate Sodium [Colace] 100 mg PO BID PRN #30 capsule 06/09/18 [Rx] OxyCODONE/APAP 5/325 [Percocet 5/325 MG] 1 each PO Q6HR PRN 7 Days #28 tablet 06/09/18 [Rx] Polyethylene Glycol 3350 [MiraLAX] 17 gm PO DAILY 30 Days #30 powd.pack 06/09/18 [Rx] Allergies/Adverse Reactions: Allergy/AdvReac Type Severity Reaction Status Date / Time No Known Allergies Allergy Verified 06/06/18 08:41 Primary care physician: Julio César Mccarty MD Discharging clinician: Andi Gibson Anticipated date of discharge: 06/09/18 Labs on day of discharge: Labs from last 24 hours 06/08/18 06/08/18 06/07/18 05:10 05:10 16:38 WBC 8.4 RBC 4.12 L Hgb 11.9 L Hct 35.9 L MCV 87.1 MCH 28.9 MCHC 33.1 RDW 13.3 Plt Count 222 MPV 9.8 Immature Gran % 0.6 Seg Neutrophils % 76.6 Lymphocytes % 8.9 Monocytes % 11.8 Eosinophils % 1.7 Basophils % 0.4 Neutrophils # 6.4 Lymphocytes # 0.8 Monocytes # 1.0 Eosinophils # 0.1 Basophils # 0.0 Sodium 137 Potassium 3.6 Chloride 106 Carbon Dioxide 27 BUN 10 Creatinine 0.73 Est GFR ( Amer) > 60 Est GFR (Non-Af Amer) > 60 BUN/Creatinine Ratio 14 Glucose 97 POC Glucose 158 H Calculated Osmolality 283 Calcium 8.5 L 06/07/18 06/07/18 06/06/18 11:11 07:30 20:43 WBC RBC Hgb Hct MCV MCH MCHC RDW Plt Count MPV Immature Gran % Seg Neutrophils % Lymphocytes % Monocytes % Eosinophils % Basophils % Neutrophils # Lymphocytes # Monocytes # Eosinophils # Basophils # Sodium Potassium Chloride Carbon Dioxide BUN Creatinine Est GFR ( Amer) Est GFR (Non-Af Amer) BUN/Creatinine Ratio Glucose POC Glucose 221 H 157 H 169 H Calculated Osmolality Calcium - Patient Status Disposition: Home, Self-Care Condition: Good Functional capacity at discharge: independent ambulation Overall status at discharge: patient is progressing back to baseline - Discharge Instructions Instructions: Laparoscopic Appendectomy (DC), Laparoscopic Bowel Resection (DC) Follow Up With: Julio César Mccarty MD [Primary Care Provider] - Marci Montesinos CNP [Advanced Practice Nurse] - 06/19/18 1:00 pm Additional Instructions: General Surgical Discharge Instructions 1. No pushing, pulling, or lifting greater than 15 lbs for 2-4 weeks (depending upon procedure). 2. You may shower beginning today, but no tub baths, soaking, or swimming for 2 weeks. 3. You may resume driving when you are off narcotics and are safe to react in a car. 4. Take ibuprofen every 8 hours for discomfort. If this does not relieve discomfort, you may take the as needed Percocet. Take narcotics as directed. Do not take more narcotics then directed and do not share your narcotics with any other person. Do not drink alcohol while on narcotics. Ate food with narcotics. Taking narcotics without this can can cause nausea. 5. Take stool softeners (Colace) or a water based laxative (Miralax) while taking narcotics. You may hold for loose stools. 6. Report any fevers greater than 100.5F, increase abdominal discomfort, drainage that looks like pus, increased redness or pain at the surgical site, or any vomiting. 7. Report any pain in the calves, shortness of breath, or rapid heartbeat. 8. Follow-up in the office as directed. 9. If you were prescribed antibiotics, do not stop them without talking to your provider. - Diet and Activity Activity: increase activity as tolerated Diet: advance to your usual diet
--- NOTE | 2018-06-08 15:15 | General Surgery Progress Note ---
Date of Encounter: 06/08/18 Time of Encounter: 08:00 - Assessment and Plan (1) Appendicitis Current Visit: Yes Status: Acute Date of procedure: 06/06/18 Pre-op diagnosis: Appendicitis Post-op diagnosis: same Procedure: 1) Diagnostic Laparoscopy, 2) Exploratory Laparotomy, 3) Ileocectomy, 4) umbilical herniorraphy Anesthesia: DANISHA Surgeon: Pradip Sung POD #2 as above. Final pathology noted acute appendicitis and serositus, small intestine with edema and serosal adhesion, cecum with serosal adhesions, edema, and focal chronic inflammation. Two benign lymph nodes, margins benign. Please note, progress note for 06/07/2018 per hard chart d/t EMR downtime First evaluation this am at aprox 0800, Kurt reported controlled abdominal pain and no flatus since yesterday. He denied n/v. He was advanced to FLD Re-evaluation at 1500 noted significant increase in abdominal distention although abdomen remains soft and expected postoperative tenderness. He is tachyicardic at 106 BPM, and is afebrile Plan: AAS now, repeat KUB in am if indicated continue supportive care and discomfort management while awaiting full return of bowel function. PRN pain medications continue G.I. and DVT prophylaxis if distention of the bowel is noted on acute abdominal series, will decrease to clear liquids tonight. Ambulate as tolerated TID (patient reports walking in the hallways this af ternoon) continue incentive spirometry continue wound care serial abdominal exams repeat a.m. labs Qualifiers: Appendicitis type: unspecified Qualified Code(s): K37 - Unspecified appendicitis (2) T2DM (type 2 diabetes mellitus) Current Visit: No Status: Chronic continue current medications SSI Qualifiers: Diabetes mellitus assisted insulin use: unspecified superintendent container terminal insulin use status Diabetes mellitus complication status: with unspecified complications Qualified Code(s): E11.8 - Type 2 diabetes mellitus with unspecified complications (3) HTN, goal below 130/80 Current Visit: No Status: Chronic Currently 108/74, Max BP this admission 137/90. Continue current medications will continue to monitor. Subjective Patient reports: no new complaints, feels better, still having pain, pain is less, tolerating liquids well, voiding w/o difficulty, flatus (on 06/07), no bowel movement, afebrile Objective Vital Signs - Last 8 Hours Temp Pulse Resp BP Pulse Ox 10/19/18 14:17 97.8 F 106 16 108/74 97 06/08/18 10:38 97.9 F 105 15 105/72 94 06/08/18 08:15 93 Intake and Output 06/07/18 06/08/18 06/08/18 23:59 07:59 15:59 Intake Total 360 / 360 0 / 0 1320 / 1320 Output Total 450 / 450 575 / 575 575 / 575 Balance -90 / -90 -575 / -575 745 / 745 Intake: Oral 360 / 360 0 / 0 1320 / 1320 Output: Urine 450 / 450 575 / 575 575 / 575 Other: Meal CLEARS Lunch Full Percent of Meal Consumed 100% # Bowel Movements 0 0 Weight 89.9 kg Blood Glucose* 137 100 250 Patient Weight 06/08/18 23:59 Weight 89.9 kg - General physical appearance no distress, no pain - Eyes normal ocular movement - ENT atraumatic, normocephalic - Neck Neck exam: trachea midline - Respiratory normal expansion, normal respiratory effort, clear to auscultation - Cardiovascular Cardiovascular exam: Present: tachycardia - Abdomen Abdomen: Present: bowel sounds present (hypoactive and faint compared to 06/07), soft, tender (expected postoperative tenderness) Hernia: none - Incision Incision: Present: clean and dry (overall c/d/i. small superior area with packing in place.), intact - Integumentary no abnormal pigmentation - Neurologic normal sensation - Musculoskeletal normal posture - Psychiatric oriented to time, oriented to person, oriented to place, memory intact - Labs 06/08/18 05:10 06/08/18 05:10 Diabetes panel 06/08/18 Range/Units 05:10 Sodium 137 (136-145) mEq/L Potassium 3.6 (3.5-5.1) mEq/L Chloride 106 (98-107) mEq/L Carbon Dioxide 27 (23-29) mEq/L BUN 10 (6-20) mg/dL Creatinine 0.73 (0.70-1.30) mg/dL Glucose 97 (70-105) mg/dL Calcium 8.5 L (8.6-10.3) mg/dL Calcium panel 06/08/18 Range/Units 05:10 Calcium 8.5 L (8.6-10.3) mg/dL Pituitary panel 06/08/18 Range/Units 05:10 Sodium 137 (136-145) mEq/L Potassium 3.6 (3.5-5.1) mEq/L Chloride 106 (98-107) mEq/L Carbon Dioxide 27 (23-29) mEq/L BUN 10 (6-20) mg/dL Creatinine 0.73 (0.70-1.30) mg/dL Glucose 97 (70-105) mg/dL Calcium 8.5 L (8.6-10.3) mg/dL Adrenal panel 06/08/18 Range/Units 05:10 Sodium 137 (136-145) mEq/L Potassium 3.6 (3.5-5.1) mEq/L Chloride 106 (98-107) mEq/L Carbon Dioxide 27 (23-29) mEq/L BUN 10 (6-20) mg/dL Creatinine 0.73 (0.70-1.30) mg/dL Glucose 97 (70-105) mg/dL Calcium 8.5 L (8.6-10.3) mg/dL Consult Discharge Plan - Plan Referrals: Julio César Mccarty MD [Primary Care Provider] - Marci Montesinos CNP [Advanced Practice Nurse] - 06/19/18 1:00 pm
[2018-06-09 04:28] LABS: Basophils % 0.3 %; Eosinophils # 0.2 K/mcL (0.0-0.6); Eosinophils % 2.3 %; Hematocrit 32.5 % (37.5-50.1); Immature Granulocytes % 0.6 % (0-4); Lymphocytes # 0.9 K/mcL (0.6-4.6); Lymphocytes % 11.7 %; Mean Corpuscular HGB Conc 33.8 g/dL (31.6-35.5); Mean Corpuscular Hemoglobin 28.8 pg (28.0-33.3); Mean Corpuscular Volume 85.1 fL (83.0-100.0); Mean Platelet Volume 10.1 fL (9.4-12.4); Monocytes # 0.8 K/mcL (0.0-1.3); Monocytes % 10.5 %; Neutrophils # 5.8 K/mcL (1.6-8.9); Platelet Count 221 K/mcL (140-400); Red Blood Count 3.82 M/mcL (4.19-5.50); Red Cell Distribution Width 13.3 % (11.5-14.5); Segmented Neutrophils % 74.6 %
[2018-06-09 04:45] LABS: BUN/Creatinine Ratio 13 (6-26); Blood Urea Nitrogen 9 mg/dL (6-20); Calcium 8.6 mg/dL (8.6-10.3); Carbon Dioxide 27 mEq/L (23-29); Chloride 105 mEq/L (98-107); Glucose 89 mg/dL (70-105); Osmolality,Calculated 284 (280-300); Potassium 3.6 mEq/L (3.5-5.1); Sodium 138 mEq/L (136-145); eGFR For Non-African Americans > 60 (> 60)
[2018-06-09] MEDS: *HR* Heparin 5,000 UNIT/ML VIAL SQ SCH (05:08)
[2018-06-09] MEDS: Insulin LISPRO 300 UNITS/3 ML VIAL SQ SCH (09:32)
[2018-06-09] MEDS: *HR* Pioglitazone 30 MG TABLET PO SCH (09:33)
[2018-06-09] MEDS: *HR* Glimepiride 4 MG TABLET PO SCH (09:33)
[2018-06-09] MEDS: Lisinopril 20 MG TABLET PO SCH (09:33)
[2018-06-09 10:25] VITALS: BP 118/76
== END 2018-06-09 10:50 | disposition home or self-care (01) | DRG 331 ==
LOC: SAMDAY 07:10 → 3ANU 11:04 → SAMDAY 06-09 13:30
PROVIDERS: ADMIT Surgery; ATTEND Surgery